=== PATIENT | female | born 1960 | race Caucasian/White ===

== ENCOUNTER 2020-07-19 08:16 | Outpatient (CLI) | payer BC, SELFPAY ==
--- NOTE | ~2020-07-19 | MM_ITS ---
EXAMINATION: MM screening [facility] BI w liv HISTORY: Screening mammogram TECHNIQUE: Craniocaudal and mediolateral oblique 3-D tomosynthesis images were obtained and synthetic 2-D images were generated. CAD analysis was submitted and interpreted. COMPARISON: 06/22/2019, 06/21/2018, 06/19/2017, 06/16/2016 bilateral digital screening mammogram examinat ions BREAST PARENCHYMAL COMPOSITION: The breasts are heterogeneously dense, which may obscure small masses . FINDINGS: There is no evidence of suspicious mass, calcification, or architectural distortion to sugg est malignancy in either breast. There has been no suspicious interval change. IMPRESSION: 1. No mammographic evidence of malignancy. 2. Recommend routine screening mammography in one year. BI-RADS Category 1: Negative Reviewed, dictated and finalized at location A.
== END 2020-07-19 08:17 | disposition home or self-care (01) ==
LOC: ANHIMG 08:21
PROVIDERS: PCP Family Medicine; Visit Provider Nurse Practitioner Obstetrics & Gynecology
DX: Z12.31 Encounter for screening mammogram for malignant neoplasm of breast (principal)
CPT/HCPCS: 77063; 77067

== ENCOUNTER 2021-09-12 16:20 | Outpatient (CLI) | payer BC, SELFPAY ==
--- NOTE | ~2021-09-12 | DEXA_ITS ---
Bone Density Report Name: MARIEL GELLER Age: 61 Sex: Female Ethnicity: White Date of : 1960 Indication: postmenopausal; height loss; Referring Provider: Phuong, Lorena Shoemaker Study: Bone densitometry was performed. Exam Date: September 12, 2021 Accession number: [id number] Bone Density: Region BMD T-score Z-score Classification AP Spine (L1-L4) 1.003 -0.4 1.2 Normal Femoral Neck (Left) 0.734 -1.0 0.4 Normal Total Hip (Left) 0.846 -0.8 0.3 Normal Total Hip Bilateral Avg 0.853 -0.8 0.4 Normal Femoral Neck (Right) 0.727 -1.1 0.3 Osteopenia Total Hip (Right) 0.859 -0.7 0.4 Normal World Health Organization criteria for BMD impression classify patients as: Normal (T-score at or above -1.0), Osteopenia (T-score between -1.0 and -2.5), or Osteoporosis (T-score at or below -2.5). 10-year Fracture Risk(1): Major Osteoporotic Fracture 7.0% Hip Fracture 0.5% Reported Risk Factors: [place] (), Neck BMD=0.727, BMI=20.6 (1) FRAX(R) Version 3.08. Fracture probability calculated for an untreated patient. Fracture probability may be lower if the patient has received treatment. Previous Exams: Region Exam Age BMD T-score BMD Change BMD Change Date g/cm2 vs Baseline vs Previous AP Spine(L1-L4) 09/12/2021 61 1.003 -0.4 -0.111(-9.9%)* 0.022(2.3%)# 06/21/2018 57 0.981 -0.6 -0.133(-12.0%) -0.133(-12.0%) 10/21/2011 51 1.114 0.6 Total Hip(Left) 09/12/2021 61 0.846 -0.8 -0.072(-7.8%)* 0.012(1.4%)# 06/21/2018 57 0.834 -0.9 -0.083(-9.1%)# -0.083(-9.1%)# 10/21/2011 51 0.917 -0.2 Total Hip(Right) 09/12/2021 61 0.859 -0.7 -0.084(-8.9%)* 0.039(4.7%)# 06/21/2018 57 0.820 -1.0 -0.123(-13.0%) -0.123(-13.0%) 10/21/2011 51 0.943 0.0 *Denotes significance at 95% confidence level, LSC for AP Spine = 0.022 g/cm2, LSC for Total Hip = 0.027 g/cm2 Clinical Information Provided by Patient: Has used the following medications: Vitamin D, Calcium Patient maximum height was 63 Drinks caffeinated beverages Onset of menses at age 10 Number of children 3 Impression: The patient has low bone mass, based on the Right Femoral Neck T-score. The patient has an estimated ten-year risk of hip fracture of 0.5% and an estimated ten-year risk of major fracture of 7%, based on the WHO FRAX algorithm. No significant bone loss was observed. Discussion: BONE DENSITY IS LOW AT ONE OR MORE SKELETAL SITES. This patient'
--- NOTE | ~2021-09-12 | MM_ITS ---
EXAMINATION: MM screening [facility]ce BI w liv HISTORY: Screening TECHNIQUE: Craniocaudal and mediolateral oblique 3-D tomosynthesis images were obtained and synthetic 2-D images were generated. CAD analysis was submitted and interpreted. COMPARISON: Comparison to multiple prior studies sequentially, with oldest reviewed study dated 06/07. BREAST PARENCHYMAL COMPOSITION: The breasts are heterogenously dense, which may obscure small masses. FINDINGS: There is no evidence of suspicious mass, calcification, or architectural distortion to sugg est malignancy in either breast. There has been no suspicious interval change. IMPRESSION: 1. No mammographic evidence of malignancy. 2. Recommend routine screening mammography in one year. BI-RADS Category 1: Negative Reviewed, dictated and finalized at location A. 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
== END 2021-09-12 16:21 | disposition home or self-care (01) ==
LOC: ANHIMG 16:22
PROVIDERS: PCP Family Medicine; Visit Provider Nurse Practitioner Obstetrics & Gynecology
DX: Z12.31 Encounter for screening mammogram for malignant neoplasm of breast (principal); Z78.0 Asymptomatic menopausal state; M85.851 Other specified disorders of bone density and structure, right thigh
CPT/HCPCS: 77063; 77067; 77080

== ENCOUNTER 2022-09-15 07:14 | Outpatient (CLI) | payer BC, SELFPAY ==
--- NOTE | ~2022-09-15 | MM_ITS ---
EXAMINATION: MM screening [facility] BI w liv HISTORY: Screening TECHNIQUE: Craniocaudal and mediolateral oblique 3-D tomosynthesis images were obtained and synthetic 2-D images were generated. CAD analysis was submitted and interpreted. COMPARISON: Comparison to multiple prior studies sequentially, with oldest reviewed study dated 06/16. BREAST PARENCHYMAL COMPOSITION: The breasts are heterogeneously dense, which may obscure small masses . FINDINGS: There are developing clustered calcifications in the upper outer quadrant of the left breas t. There are no suspicious calcifications, architectural distortion or discrete mass in the right jada ast. IMPRESSION: 1. Elevation cluster of indeterminate left breast calcifications, upper outer quadrant. 2. Magnification views are recommended. BI-RADS Category 0: Incomplete: Needs additional imaging evaluation. Reviewed, dictated and finalized at location A. 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 Elevation cluster of indeterminate left breast calcifications, upper outer q uadrant. 2. Magnification views are recommended. BI-RADS Category 0: Incomplete: Needs additional imaging evaluation.
== END 2022-09-15 07:15 | disposition home or self-care (01) ==
LOC: ANHIMG 07:15
PROVIDERS: PCP Family Medicine; Visit Provider Nurse Practitioner Obstetrics & Gynecology
DX: Z12.31 Encounter for screening mammogram for malignant neoplasm of breast (principal); R92.8 Other abnormal and inconclusive findings on diagnostic imaging of breast
CPT/HCPCS: 77063; 77067

== ENCOUNTER 2022-10-10 12:12 | Outpatient (CLI) | payer BC, SELFPAY ==
--- NOTE | ~2022-10-10 | MM_ITS ---
EXAMINATION: MM diagnostic mammo unilat LT HISTORY: Follow-up calcifications TECHNIQUE: Additional 3-D tomosynthesis images of the left breast were performed and synthetic 2-D im ages were generated. CAD analysis was submitted and interpreted. COMPARISON: Comparison to multiple prior studies sequentially, with oldest reviewed study dated 06/19. BREAST PARENCHYMAL COMPOSITION: The breasts are heterogeneously dense, which may obscure small masses FINDINGS: Left breast calcifications are most likely benign. No suspicious masses or architectural di stortion. IMPRESSION: 1. Probable benign left breast calcifications. 2. Recommend 6 month follow-up diagnostic left mammogram. BI-RADS category 3, probably benign findings. Reviewed, dictated and finalized at location A. 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
== END 2022-10-10 12:13 | disposition home or self-care (01) ==
LOC: ANHIMG 12:15
PROVIDERS: PCP Family Medicine; Visit Provider Nurse Practitioner Obstetrics & Gynecology
DX: R92.8 Other abnormal and inconclusive findings on diagnostic imaging of breast (principal)
CPT/HCPCS: 77065

== ENCOUNTER 2023-04-10 11:45 | Outpatient (CLI) | payer BC, SELFPAY ==
--- NOTE | ~2023-04-10 | MM_ITS ---
EXAMINATION: MM diagnostic joyce LT w liv HISTORY: Follow-up of microcalcifications TECHNIQUE: ML, MLO and CC 3-D tomosynthesis images of the left breast were performed and synthetic 2- D images were generated. Magnification views of the left breast in ML, MLO and CC projections. CAD an alysis was submitted and interpreted. COMPARISON: 10/10/2022 diagnostic mammogram BREAST PARENCHYMAL COMPOSITION: The breasts are heterogeneously dense, which may obscure small masses . FINDINGS: No suspicious mass or architectural distortion, malignant calcification, skin thickening or retraction or significant new or developing density is detected. Minimal diminished benign calcific ation in the anterior upper outer left breast compared to 10/10/2022. IMPRESSION: 1. Benign finding; no mammographic evidence of malignancy 2. Routine mammographic screening is recommended BI-RADS Category 2: Benign finding(s). Reviewed, dictated and finalized at location A.
== END 2023-04-10 11:46 | disposition home or self-care (01) ==
LOC: ANHIMG 11:47
PROVIDERS: PCP Family Medicine; Visit Provider Nurse Practitioner Obstetrics & Gynecology
DX: R92.8 Other abnormal and inconclusive findings on diagnostic imaging of breast (principal)
CPT/HCPCS: 77061; 77065; G0279

== ENCOUNTER 2024-02-13 07:22 | Outpatient (CLI) | payer MEDICARE, SELFPAY ==
--- NOTE | ~2024-02-13 | MM_ITS ---
EXAMINATION: MM screening joyce BI w liv HISTORY: Screening TECHNIQUE: Craniocaudal and mediolateral oblique 3-D tomosynthesis images were obtained and synthetic 2-D images were generated. CAD analysis was submitted and interpreted. COMPARISON: Comparison to multiple prior studies sequentially, with oldest reviewed study dated 06/22. BREAST PARENCHYMAL COMPOSITION: Dense: The breasts are heterogeneously dense, which may obscure small masses FINDINGS: There is no evidence of suspicious mass, calcification, or architectural distortion to sugg est malignancy in either breast. There has been no suspicious interval change. IMPRESSION: 1. No mammographic evidence of malignancy. 2. Recommend routine screening mammography in one year. BI-RADS Category 1: Negative Reviewed, dictated and finalized at location A.
--- NOTE | ~2024-02-13 | DEXA_ITS ---
Bone Density Report Name: MARIEL GELLER Age: 63 Sex: Female Ethnicity: White Date of : 1960 Indication: postmenopausal; screening for osteoporosis; cancer; Referring Provider: KATHERINE, WILBERTO Shoemaker Study: Bone densitometry was performed. Exam Date: February 13, 2024 Accession number: [id number] Bone Density: Region BMD T-score Z-score Classification AP Spine(L1-L4) 0.972 -0.7 1.1 Normal Femoral Neck (Left) 0.736 -1.0 0.5 Normal Total Hip (Left) 0.833 -0.9 0.4 Normal Femoral Neck (Right) 0.768 -0.7 0.8 Normal Total Hip (Right) 0.857 -0.7 0.5 Normal Total Hip Mean 0.845 -0.8 0.5 Normal World Health Organization criteria for BMD impression classify patients as: Normal (T-score at or above -1.0), Osteopenia (T-score between -1.0 and -2.5), or Osteoporosis (T-score at or below -2.5). 10-year Fracture Risk: FRAX not reported because: All T-scores for Spine Total, Hip Total, Femoral Neck at or above -1.0 Previous Exams: Region Exam Age BMD T-score BMD Change BMD Change Date g/cm2 vs Baseline vs Previous AP Spine (L1-L4) 02/13/2024 63 0.972 -0.7 -0.008 (-0.8%) -0.031 (-3.1%) 09/12/2021 61 1.003 -0.4 0.022 (2.3%)# 0.022 (2.3%)# 06/21/2018 57 0.981 -0.6 Total Hip(Left) 02/13/2024 63 0.833 -0.9 -0.001 (-0.1%) -0.012 (-1.5%) 09/12/2021 61 0.846 -0.8 0.012 (1.4%)# 0.012 (1.4%)# 06/21/2018 57 0.834 -0.9 Total Hip(Right) 02/13/2024 63 0.857 -0.7 0.037 (4.5%)* -0.002 (-0.3%) 09/12/2021 61 0.859 -0.7 0.039 (4.7%)# 0.039 (4.7%)# 06/21/2018 57 0.820 -1.0 *Denotes significance at 95% confidence level, LSC for AP Spine = 0.022 g/cm2, LSC for Total Hip = 0.027 g/cm2 # Denotes dissimilar scan types or analysis methods Clinical Information Provided by Patient: Has used the following medications: Vitamin D, Calcium Has the following medical conditions: Cancer Patient maximum height was 63 Drinks caffeinated beverages Onset of menses at age 11 Number of children 3 Impression: The patient has normal bone mass. No significant bone loss was observed. Discussion: BONE DENSITY IS ABOVE THE MINIMUM DESIRABLE LEVEL AT ALL SKELETAL SITES TESTED. This patient?s bone mineral density is above the minimum desirable level (T-score -1.0 or better) at all sites measured. The patient should follow a healthful lifestyle (good nutrition with adequate calcium and vitamin D, and appropriate weight-bearing exe
== END 2024-02-13 07:23 | disposition home or self-care (01) ==
PROVIDERS: PCP Family Medicine; Visit Provider Nurse Practitioner Obstetrics & Gynecology
DX: Z12.31 Encounter for screening mammogram for malignant neoplasm of breast (principal); Z78.0 Asymptomatic menopausal state; Z13.820 Encounter for screening for osteoporosis
CPT/HCPCS: 77063; 77067; 77080

== ENCOUNTER 2025-03-03 07:23 | Outpatient (CLI) | payer MEDICARE, SELFPAY ==
--- NOTE | ~2025-03-03 | MM_ITS ---
EXAMINATION: MM screening joyce BI w liv HISTORY: Screening TECHNIQUE: Craniocaudal and mediolateral oblique 3-D tomosynthesis images were obtained and synthetic 2-D images were generated. CAD analysis was submitted and interpreted. COMPARISON: Comparison to multiple prior studies sequentially, with oldest reviewed study dated 08/28. BREAST PARENCHYMAL COMPOSITION: Not dense: There are scattered areas of fibroglandular density. FINDINGS: There is focal asymmetry in the upper aspect of the left breast which is more prominent sada n on prior studies. This is not well recognized on the cc view. The right breast is stable without ev idence for malignancy. IMPRESSION: 1. Focal left breast asymmetry superiorly on MLO view, middle third. 2. Additional mammographic views and possible breast ultrasound are recommended. BI-RADS Category 0: Incomplete: Needs additional imaging evaluation. Reviewed, dictated and finalized at location A. IMPRESSION: 1. Focal left breast asymmetry superiorly on MLO view, middle third. 2. Additional mammographic views and possible breast ultrasound are recommended . BI-RADS Category 0: Incomplete: Needs additional imaging evaluation.
--- OUTSIDE RECORDS SUMMARY | 2025-03-03 07:26 | XMS_ITS | Clinical Summary ---
Author Organization [facility] Address [address] [place] [address] Phone Care Team Providers Care Product Manufacturing Professional Name Role Phone Ross Reyes MD Primary Care Provider [phone] Allergies Active Allergy Reactions Criticality Noted Date Comments Latex Other (See Comments) 09/13/2010 Medications CALCIUM ORALIndications: Lump or mass in breast Take by mouth. 1200mg Active CHOLECALCIFEROL, VITAMIN D3, (VITAMIN D-3 ORAL)Indications :Lump or mass in breast Take by mouth. 1000 iu's Active Active Problems Patient Care Coordination No te Formatting of this note migh t be different from the original. Primary Care: Ross Reyes MD Referring Provider: Valentina Orozco [address] [place] [address] [place] [address] Other: Pt denies any family hx of breast/ovarian ca Pt does state that her mother from adencarcinoma of an unknown origin. States that the doctor told the family that it could have been Pancreatic or ovarian. No autopsy was performed due to family wishes. 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 Gender Identity Not on file Sexual Orientation Not on file Occupation Industry Job Start Date Job End Date Not on file Not on file Not on file Not on file Last Filed Vital Signs Vital Sign Reading Time Taken Comments Blood Pressure 129/54 12/13/2010 1:29 PM CDT Pulse - - Temperature - - Respiratory Rate - - Oxygen Saturation - - Inhaled Oxygen Concentration - - Weight 70.8 kg (156 lb) 12/13/2010 1:29 PM CDT Height 165.1 cm (5' 5) 12/13/2010 1:29 PM CDT Body Mass Index 25.96 12/13/2010 1:29 PM CDT Plan of Treatment Health Maintenance Due Date Last Done Comments DTAP/TDAP/TD VACCINES (1 - Tdap) 1977 COLORECTAL SCREENING 2003 Colorectal Cancer Screening 2003 FIT-DNA Q 3 years 2003 FIT/FOBT Q 1 year 2003 Flex Sig/CT Colonography Q 5 years 2003 PNEUMOCOCCAL VACCINE 50+ YEA RS (1 of 1 - PCV) 2008 ZOSTER VACCINE (1 of 2) 2008 BREAST CANCER SCREENING 07/25/2011 07/25/20 10, 07/25/2010, 02/20/2009, Additional history exists OSTEOPOROSIS SCREENING 2023 INFLUENZA VACCINE (#1) 2024 RSV VACCINE (60+ or ) (1 - 1-dose 75+ series) 2033 Procedures Procedure Name Priority Date/Time Associated Diagnosis Comments MAMMO DIAGNOSTIC BILATERAL W OR WO CAD Routine 07/25/2010 from Last 3 Months or Most Recently Relevant to Health Maintenance Results * MAMMO DIGITAL DIAG BILAT (07/25/2010) Anatomical Region Laterality Modality Breast Bilateral Other us Valentina [place] MAMMO ORDERABLES Final Resul t from Last 3 Months or Most Recently Relevant to Health Maintenance Insurance [employer] OPEN ACCESS Care Teams Product Manufacturing Professional Relationship Specialty Start Date End Date Ross Reyes MD [address] [place] [phone] PCP - General Family Practice 09/13/10
--- OUTSIDE RECORDS SUMMARY | 2025-03-03 07:27 | XMS_ITS | Data Portability ---
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 Patient will come back in a year unless there are new symptoms. [email or web address] Not available 07/03/2020 10:48:12 07/09/2021 07/09/2021 Annual gynecological exam performed. Patient will come back in a year unless there are new symptoms. Not available 07/08/2021 16:51:05 09/04/2022 09/04/2022 Annual gynecological exam performed. Patient will come back in a year unless there are new symptoms. [email or web address] Not available 09/04/2022 09:17:51 09/08/2023 09/08/2023 Annual gynecological exam performed. Patient will come back in a year unless there are new symptoms. Not available 09/08/2023 09:31:00 Plan of Treatment Reminders Order Date Submit Date Provider Last Modified By Organization Details Last Modified Time Details Appointments WE[facility]OMAN-EST 2024 10:00A M NBA Barroso Not available Not available Not available Lab CMP, serum or plasma 2019 020 [facility] ([facility]), [address] , [address], [place], [address], 07/04/2020 12:23:03 CBC 2019 020 [facility] ([facility]), [address] , [address], [place], [address], 07/04/2020 12:23:02 lipid panel, serum 2019 [facility] ([facility]), [address], [place], [address], 07/04/2020 12:23:02 TSH, serum or plasma 2019 020 [facility] ([facility]), [address] , [address], [place], [address], 07/04/2020 12:23:04 vitamin D, 25-hydrox y, total, serum 2019 020 [facility]), [address] , [address], [place], [address], 07/04/2020 12:23:04 Referral None recorded. Procedures None recorded. Surgeries None recorded. Imaging MAMMO, screening , bilateral 2022 023 [facility], [address], [address], [place], [address], 09/22/2023 11:26:36 DEXA, axial skeleton + vertebral fracture assessmen t [address] [facility], [address], [place], [address], 02/12/2024 16:30:19 MAMMO, screening , bilateral 2021 022 [facility], [address], [place], [address], 09/15/2022 15:32:35 DEXA, axial skeleton + vertebral fracture assessmen t 2020 021 [facility], [address], [place], [address], 10/09/2021 15:17:10 Medication Orders None recorded. Patient TargetsNo targets recorded. Patient Instructions Encounter Date Encounter Id Patient Instructions Last Modified By Organization Details Last Modified Time 07/03/2020 [id number] [email or web address] Not available 12:34:03 Reason for Referral None Reported. Results Created Date Observation Date Name Description Value Unit Range Abnormal Flag Note LastModifiedBy Organization Detail LastModifiedTime 07/03/2007/04/2020 lipid panel , serum cholesterol 184 mg/dL <200 Not Available [facility] ([facility]) [address] [place] [address] Dr [address], [place], [address], 07/04/2020 12:23:02 07/03/2007/04/2020 lipid panel , serum triglyceride s 51 mg/dL <150 Not Available [facility] ([facility]) [address] [place] [address] Dr [address], [place], [address], 07/04/2020 12:23:02 07/03/2007/04/2020 lipid panel , serum HDL cholesterol 97 mg/dL >39 Not Available [facility] ([facility]) [address] [place] [address] Dr [address], [place], [address], 07/04/2020 12:23:02 07/03/2007/04/2020 lipid panel , serum cholesterol / HDL ratio 1.90 ratio 0.00-4 .44 Not Available [facility] ([facility]) [address] [place] [address] Dr [address], [place], [address], 07/04/2020 12:23:02 07/03/20 20 07/04/2020 lipid panel , serum non-HDL cholesterol 87 mg/dL <130 Not Available [facility] ([facility]) [address] [place] [address], [place], [address], 07/04/2020 12:23:02 07/03/2007/04/2020 lipid panel , serum LDL cholesterol (calculation ) 77 mg/dL <130 LDL Lynn stero l Level s Less than 100 mg/dL Optim al 100 to 129 mg/dL Near Optim al/ Above Optim al 130 to 159 mg/dL Borde rline High 160 to 189 mg/dL High 190 mg/dL and above Very High * Categ ories as recom olegario d by the 2003 ATPII I guide lines Not Available [facility]) [address] [facility] [address], [place], [address], 07/04/2020 12:23:02 07/03/2007/04/2020 lipid panel , serum LDL/HDL ratio 0.8 ratio <3.3 ___ LDL Lynn stero l Patie nt Histo ry ___ Test Date: 07/03 LDL Resul ts: 77 Units : mg/dL % Burgos e: - ___ Note: Ameri can Heart Assoc iatio n recom mends using total lynn stero l and HDL numbe rs rathe r than ratio s for patie nt class ifica tion. New guide lines from AHA/A CC recom mend again st using speci fic LDL targe ts for patie nt manag ement . Rathe r a perce ntage decre ase is the april ed patie nt manag ement algor ithm, betwe en 30% and 50% reduc tion. If you would like to have your patie nts Cardi ovasc ular Risk Asses sment class ifica tion (per 2013 AHA/A CC guide lines ) 10-ye ar ASCVD score , pleas e order the ASCVD Advan johnny Lipid i joel (LIPC VD). Not Available [facility] ([facility]) [address] [place] [address] Dr [address], [place], [address], 07/04/2020 12:23:02 07/03/20 20 07/04/2020 CBC WBC 4.2 K/uL 3.8-11 .5 Not Available [facility] ([facility]) [address] [place] [address] Dr [address], [place], [address], 07/04/2020 12:23:02 07/03/20 20 07/04/2020 CBC red blood cell count (RBC) 3.87 M/mm3 3.60-5 .30 Not Available [facility] ([facility]) [address] [place] [address] Dr [address], [place], [address], 07/04/2020 12:23:02 07/03/20 20 07/04/2020 CBC hemoglobin (HGB) 11.9 gm/dL 11.5-1 5.5 Not Available [facility] ([facility]) [address] [place] [address] Dr [address]z, [place], [address], 07/04/2020 12:23:02 07/03/20 20 07/04/2020 CBC hematocrit (HCT) 34.0 % 35.2-4 6.4 low Not Available [facility] ([facility]) [address] [place] [address] Dr [address], [place], [address], 07/04/2020 12:23:02 07/03/20 20 07/04/2020 CBC MCV 87.9 fL 79.0-9 9.0 Not Available [facility] ([facility]) [address] [place] [address] Dr [address], [place], [address], 07/04/2020 12:23:02 07/03/2007/04/2020 CBC MCH 30.7 pg 26.9-3 5.0 Not Available [facility] ([facility]) [address] [place] [address] Dr [address]ilez, [place], [address], 07/04/2020 12:23:02 07/03/2007/04/2020 CBC MCHC 35.0 g/dL 30.4-3 4.8 high Not Available [facility] ([facility]) [address] [place] [address] Dr [address], [place], [address], 07/04/2020 12:23:02 07/03/2007/04/2020 CBC RDW 40.1 fL 38.6-5 3.8 Not Available [facility] ([facility]) [address] [place] [address] Dr [address]z, [place], [address], 07/04/2020 12:23:02 07/03/2007/04/2020 CBC platelet count 209 K/cum m 137-39 7 Not Available [facility] ([facility]) [address] [place] [address] Dr [address]z, [place], [address], 07/04/2020 12:23:02 07/03/2007/04/2020 CMP, serum or plasm a sodium 138 mEq/L 135-14 5 Not Available [facility] ([facility]) [address] [place] [address] Dr [address]z, [place], [address], 07/04/2020 12:23:03 07/03/2007/04/2020 CMP, serum or plasm a potassium 4.1 mEq/L 3.5-5. 3 Not Available [facility] ([facility]) [address] [place] [address] Dr [address]z, [place], [address], 07/04/2020 12:23:03 07/03/20 20 07/04/2020 CMP, serum or plasm a chloride 99 mEq/L 97-108 Not Available [facility]) [address] [place] [address] Dr [address], [place], [address], 07/04/2020 12:23:03 07/03/2007/04/2020 CMP, serum or plasm a CO2 31 mEq/L 22-32 Not Available [facility] ([facility]) [address] [place] [address] Dr [address], [place], [address], 07/04/2020 12:23:03 07/03/20 20 07/04/2020 CMP, serum or plasm a glucose 88 mg/dL 65-99 Not Available [facility] ([facility]) [address] [place] [address] Dr [address], [place], [address], 07/04/2020 12:23:03 07/03/2007/04/2020 CMP, serum or plasm a BUN 11 mg/dL 8-23 Not Available [facility]) [address] [place] [address] Dr [address]z, [place], [address], 07/04/2020 12:23:03 07/03/20 20 07/04/2020 CMP, serum or plasm a creatinine 0.81 mg/dL 0.50-1 .00 Not Available [facility] ([facility]) [address] [place] [address] Dr [address]z, [place], [address], 07/04/2020 12:23:03 07/03/20 20 07/04/2020 CMP, serum or plasm a calcium 9.8 mg/dL 8.6-10 .4 Not Available [facility] ([facility]) [address] [place] [address] Dr [address]z, [place], [address], 07/04/2020 12:23:03 07/03/20 20 07/04/2020 CMP, serum or plasm a protein 6.6 g/dL 6.0-8. 3 Not Available [facility] ([facility]) [address] [place] [address] Dr Avilez, [place], [address], 07/04/2020 12:23:03 07/03/2007/04/2020 CMP, serum or plasm a albumin 4.5 g/dL 3.5-5. 3 Not Available [facility] ([facility]) [address] [place] [address] Dr Avilez, [place], [address], 07/04/2020 12:23:03 07/03/2007/04/2020 CMP, serum or plasm a alkaline phosphatase 85 IU/L 35-121 Not Available [facility] ([facility]) [address] [place] [address] Dr Avilez, [place], [address], 07/04/2020 12:23:03 07/03/20 20 07/04/2020 CMP, serum or plasm a ALT (SGPT) 24 IU/L <5-47 Not Available [facility] ([facility]) [address] [place] [address] Dr Avilez, [place], [address], 07/04/2020 12:23:03 07/03/2007/04/2020 CMP, serum or plasm a AST (SGOT) 26 IU/L <5-40 Not Available [facility] ([facility]) [address] [place] [address] Dr Avilez, [place], [address], 07/04/2020 12:23:03 07/03/20 20 07/04/2020 CMP, serum or plasm a bilirubin, total 0.3 mg/dL <0.2-1 .2 Not Available [facility] ([facility]) [facility] [address], [place], [address], 07/04/2020 12:23:03 07/03/2007/04/2020 CMP, serum or plasm a A/G ratio 2.1 mg/dL 1.1-2. 5 Not Available [facility]) [address] [place] [address] Dr Avilez, [place], [address], 07/04/2020 12:23:03 07/03/2007/04/2020 GFR, estim ated (eGFR ), serum estimated GFR (black) 90 mL/mi n/1.7 3m2 >59 Not Available [facility]) [facility] [address], [place], [address], 07/04/2020 12:23:03 07/03/2007/04/2020 GFR, estim ated (eGFR ), serum estimated GFR (other) 78 mL/mi n/1.7 3m2 >59 GFR Categ ories in Chron ic Kidne y Disea se (CKD) GFR Categ ory GFR (mL/m in/1. 73 sq. meter s) Inter preta tion G1 90 or great er Orly l or high* G2 60-89 Mild decre ase* G3a 45-59 Mild to moder ate decre ase G3b 30-44 Moder ate to sever e decre ase G4 15-29 Sever e decre ase G5 14 or less Kidne y failu re *In the absen ce of karthik beckwith e, neith er GFR categ ory G1 or G2 fulfi ll the crite kamryn for CKD (Antionette ey Int Suppl 2013; 3.1-1 50) The CKD-E PI calcu latio n is inten ded for use in patie nts 18 years of age and older . Decre ased calcu latio n accur acy may be seen in patie nts takin g medic ation s that affec t renal excre tion, or in those patie nts with extre mes in muscl e mass or diet. Not Available [facility] ([facility]) [address] [place] [address] Dr Avilez, [place], [address], 07/04/2020 12:23:03 07/03/20 20 07/04/2020 TSH, serum or plasm a TSH reflex to FT4 2.57 mU/L 0.27-4 .20 Not Available [facility] ([facility]) [address] [place] [address] Dr [address]z, [place], [address], 07/04/2020 12:23:04 07/03/20 20 07/04/2020 vitam in D, 25-hy droxy , total , serum vitamin D 25-hydroxy 42.1 NG/mL 30.0-1 00.0 Inter preta tion of Vitam in D 25 OH: < 20 ng/mL - Defic iency 20 - 29 ng/mL - Insuf ficie ncy 30 - 100 ng/mL - Suffi cienc y > 100 ng/mL - Super -ther apeut ic- toxic ity may occur above this level . Clini shannon corre latio n requi red. Not Available [facility] ([facility]) [address] [place] [address] Dr [address]z, [place], [address], 07/04/2020 12:23:04 10/16/19 22 10/16/2021 CBC W/DIF F WBC 4.7 10'3/ uL 3.6-10 .2 Not Available [facility] (Lab) [address], [place], [address], 10/17/2021 02:25:49 10/16/19 22 10/16/2021 CBC W/DIF F RBC 4.60 10'6/ uL (based on docume nted legal sex) 4.10-5 .30 Not Available [facility] (Lab) [address], [place], [address], 10/17/2021 02:25:49 10/16/19 22 10/16/2021 CBC W/DIF F HGB 13.3 g/dL (based on docume nted legal sex) 11.9-1 5.8 Not Available [facility] (Lab) [address], [place], [address], 10/17/2021 02:25:49 10/16/19 22 10/16/2021 CBC W/DIF F HCT 41.6 % (based on docume nted legal sex) 37.4-4 8.3 Not Available [facility] (Lab) [address], [place], [address], 10/17/2021 02:25:49 10/16/19 22 10/16/2021 CBC W/DIF F MCV 91.0 fL 82.0-9 9.0 Not Available [facility] (Lab) [address], [place], [address], 10/17/2021 02:25:49 10/16/19 22 10/16/2021 CBC W/DIF F MCH 29.0 pg 27.0-3 3.0 Not Available [facility] (Lab) [address], [place], [address], 10/17/2021 02:25:49 10/16/19 22 10/16/2021 CBC W/DIF F MCHC 32.0 g/dL 32.0-3 6.0 Not Available [facility] (Lab) [address] [place], [address], 10/17/2021 02:25:49 10/16/19 22 10/16/2021 CBC W/DIF F RDW 13.0 % 11.0-1 5.0 Not Available [facility] (Lab) [address], [place], [address], 10/17/2021 02:25:49 10/16/19 22 10/16/2021 CBC W/DIF F plt 191 10'3/ uL 150-45 0 Not Available [facility] (Lab) [address], [place], [address], 10/17/2021 02:25:49 10/16/19 22 10/16/2021 CBC W/DIF F MPV 10.1 fL 9.8-12 .7 Not Available [facility] (Lab) [address], [place], [address], 10/17/2021 02:25:49 10/16/19 22 10/16/2021 CBC W/DIF F NRBC's 0.00 % 0 Not Available [facility] (Lab) [address], [place], [address], 10/17/2021 02:25:49 10/16/19 22 10/16/2021 CBC W/DIF F absolute NRBCs 0.0 10'3/ uL 0 Not Available [facility] (Lab) [address], [place], [address], 10/17/2021 02:25:49 10/16/19 22 10/16/2021 CBC W/DIF F neutrophils 58.0 % 37.0-7 2.0 Not Available [facility] (Lab) [address], [place], [address], 10/17/2021 02:25:49 10/16/19 22 10/16/2021 CBC W/DIF F lymphocytes 30.0 % 16.0-4 8.0 Not Available [facility] (Lab) [address], [place], [address], 10/17/2021 02:25:49 10/16/19 22 10/16/2021 CBC W/DIF F monocytes 6.0 % 4.0-14 .0 Not Available [facility] (Lab) [address], [place], [address], 10/17/2021 02:25:49 10/16/19 22 10/16/2021 CBC W/DIF F eosinophils 5.0 % 0.0-9. 0 Not Available [facility] (Lab) [address] [facility], [place], [address], 10/17/2021 02:25:49 10/16/19 22 10/16/2021 CBC W/DIF F basophils 1.0 % 0.0-2. 0 Not Available [facility] (Lab) [address] [facility], [place], [address], 10/17/2021 02:25:49 10/16/19 22 10/16/2021 CBC W/DIF F immature granulocytes 0.0 % no define d refere nce range Not Available [facility] (Lab) [address] [facility], [place], [address], 10/17/2021 02:25:49 10/16/19 22 10/16/2021 CBC W/DIF F absolute neutrophils 2.7 10'3/ uL 1.1-6. 0 Not Available [facility] (Lab) [address] [facility], [place], [address], 10/17/2021 02:25:49 10/16/19 22 10/16/2021 CBC W/DIF F absolute lymphocytes 1.4 10'3/ uL 0.7-3. 4 Not Available [facility] (Lab) [address] [facility], [place], [address], 10/17/2021 02:25:49 10/16/19 22 10/16/2021 CBC W/DIF F absolute monocytes 0.3 10'3/ uL 0.3-1. 0 Not Available [facility] (Lab) [address] [place], [address], 10/17/2021 02:25:49 10/16/19 22 10/16/2021 CBC W/DIF F absolute eosinophils 0.2 10'3/ uL 0.0-0. 6 Not Available [facility] (Lab) [address] [facility], [place], [address], 10/17/2021 02:25:49 10/16/19 22 10/16/2021 CBC W/DIF F absolute basophils 0.1 10'3/ uL 0.0-0. 1 Not Available [facility] (Lab) [address] [facility], [place], [address], 10/17/2021 02:25:49 10/16/19 22 10/16/2021 CBC W/DIF F absolute immature granulocytes 0.00 10'3/ uL 0.00-0 .10 2021 12:36 AM: P indic ates parti al resul ts on a panel have been relea sed. Addit ional resul ts will follo w. 2021 12:36 AM: This resul t has been final verif ied. No addit ional or burgos ed resul ts are expec ashley. Not Available [facility] (Lab) [address] [facility], [place], [address], 10/17/2021 02:25:49 10/16/19 22 10/16/2021 PHOSP HORUS phosphorus 3.4 mg/dL 2.5-5. 0 Not Available [facility] (Lab) [address] [facility], [place], [address], 10/17/2021 02:25:50 10/16/19 22 10/16/2021 CMP(C OMPRE HENSI VE METAB OLIC PANEL ) sodium 141 mmol/ L 133-14 6 Not Available [facility] (Lab) [address] [place], [address], 10/17/2021 02:25:50 10/16/19 22 10/16/2021 CMP(C OMPRE HENSI VE METAB OLIC PANEL ) potassium 4.2 mmol/ L 3.5-5. 1 Not Available [facility] (Lab) [address] [place], [address], 10/17/2021 02:25:50 10/16/19 22 10/16/2021 CMP(C OMPRE HENSI VE METAB OLIC PANEL ) chloride 106 mmol/ L 98-107 Not Available [facility] (Lab) [address] [place], [address], 10/17/2021 02:25:50 10/16/19 22 10/16/2021 CMP(C OMPRE HENSI VE METAB OLIC PANEL ) carbon dioxide 27 mmol/ L 21-31 Not Available [facility] (Lab) [address] [facility], [place], [address], 10/17/2021 02:25:50 10/16/19 22 10/16/2021 CMP(C OMPRE HENSI VE METAB OLIC PANEL ) anion gap 8 mmol/ L 4-13 Not Available [facility] (Lab) [address], [place], [address], 10/17/2021 02:25:50 10/16/19 22 10/16/2021 CMP(C OMPRE HENSI VE METAB OLIC PANEL ) blood urea nitrogen 16 mg/dL 7-25 Not Available [facility] (Lab) [address] [facility], [place], [address], 10/17/2021 02:25:50 10/16/19 22 10/16/2021 CMP(C OMPRE HENSI VE METAB OLIC PANEL ) creatinine 0.86 mg/dL 0.60-1 .30 Not Available [facility] (Lab) [address] [facility], [place], [address], 10/17/2021 02:25:50 10/16/19 22 10/16/2021 CMP(C OMPRE HENSI VE METAB OLIC PANEL ) egfrcr (CKD-epi 2020) 76 mL/mi n/1.7 3_m2 >=60 Not Available [facility] (Lab) [address] [facility], [place], [address], 10/17/2021 02:25:50 10/16/19 22 10/16/2021 CMP(C OMPRE HENSI VE METAB OLIC PANEL ) calcium 9.4 mg/dL 8.3-10 .5 Not Available [facility] (Lab) [address] [facility], [place], [address], 10/17/2021 02:25:50 10/16/19 22 10/16/2021 CMP(C OMPRE HENSI VE METAB OLIC PANEL ) glucose 83 mg/dL 70-100 Not Available [facility] (Lab) [address] [facility], [place], [address], 10/17/2021 02:25:50 10/16/19 22 10/16/2021 CMP(C OMPRE HENSI VE METAB OLIC PANEL ) protein, total 6.5 g/dL 6.4-8. 3 Not Available [facility] (Lab) [address] [facility], [place], [address], 10/17/2021 02:25:50 10/16/19 22 10/16/2021 CMP(C OMPRE HENSI VE METAB OLIC PANEL ) albumin 4.4 g/dL 3.5-5. 0 Not Available [facility] (Lab) [address] [facility], [place], [address], 10/17/2021 02:25:50 10/16/19 22 10/16/2021 CMP(C OMPRE HENSI VE METAB OLIC PANEL ) ALT 22 units /L 9-43 Not Available [facility] (Lab) [address] [facility], [place], [address], 10/17/2021 02:25:50 10/16/19 22 10/16/2021 CMP(C OMPRE HENSI VE METAB OLIC PANEL ) alkaline phosphatase 70 units /L 34-104 Not Available [facility] (Lab) [address] [place], [address], 10/17/2021 02:25:50 10/16/19 22 10/16/2021 CMP(C OMPRE HENSI VE METAB OLIC PANEL ) AST 22 units /L 13-39 Not Available [facility] (Lab) [address] [place], [address], 10/17/2021 02:25:50 10/16/19 22 10/16/2021 CMP(C OMPRE HENSI VE METAB OLIC PANEL ) bilirubin, total 0.5 mg/dL 0.2-1. 2 Not Available [facility] (Lab) [address] [facility], [place], [address], 10/17/2021 02:25:50 10/16/19 22 10/16/2021 TSH, REFLE X FREE T4 TSH 3.48 uIU/m L 0.30-5 .33 Not Available [facility] (Lab) [address] [place], [address], 10/17/2021 02:25:50 10/16/19 22 10/16/2021 VITAM IN D, 25-OH (TOTA L D2/D3 ) vitamin D, 25-hydroxy, total 44.1 NG/mL 30-80 NOTE: Defic iency : <20 ng/mL Insuf ficie ncy: 20-29 ng/mL Optim um Level : 30-80 ng/mL Possi ble Toxic ity: >80 ng/mL Most patie nts with toxic ity have level s >150 ng/mL . 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 Atrop hy prese nt. Elect ronic ally jaguar d by Richard mar, Patience ay, CT on 2021 at 2:13 PM ----- ----- ----- ----- ----- ----- ----- ----- ----- ----- ----- ----- ----- ----- ----- ----- ----- ---- HPV RESUL TS: HPV mRNA E6/E7 : No HPV mRNA Detec ashley NOTE: This high risk HPV mRNA assay detec ts fourt een high- risk HPV types (16, 18, 31, 33, 35, 39, 45, 51, 52, 56, 58, 59, 66, 68) witho ut diffe renti ation . COMME NT: Note: This speci men was revie wed by a Cytot echno logis t and/o r Patho logis t (as indic ated in this repor t) after evalu ation using the Thinp rep Imagi ng Syste m. CLINI [facility]ON INFOR MATIO N: Menst rual Statu s: LMP (if appli cable ): Clini shannon Histo ry/Pr eviou s Pap: Type of Neopl cesar (if appli cable ): Signi fican t Clini shannon Findi ngs: Other Histo ry: Hormo norman (if appli cable ): PAP EDUCA TERRI L NOTE: The Pap Test is a scree jodi test with an inher ent false negat clay rate. Liqui d-bas ed sampl ing may decre ase, but will not elimi mel, false negat clay resul ts. A negat clay resul t does not precl ude the prese nce and/o r devel opmen t of disea se, since the prese nce of abnor mal cells in the sampl e depen ds on the locat ion of the lesio n and sampl ing techn ique. Enrique nued regul ar scree jodi is the best metho d of cance r preve ntion . If repor ashley cytol ogic findi ng do not corre late with physi shannon and/o r histo rical findi ngs, furth er inves tigat ion is recom olegario d, as clini linh helms nted. 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 Atrop hy prese nt. Elect mayur silva jaguar d by Becky Saha , CT on 09/11 at 9:26 AM ----- ----- ----- ----- ----- ----- ----- ----- ----- ----- ----- ----- ----- ----- ----- ----- ----- ---- HPV RESUL TS: HPV mRNA E6/E7 : No HPV mRNA Detec ashley NOTE: This high risk HPV mRNA assay detec ts fourt een high- risk HPV types (16, 18, 31, 33, 35, 39, 45, 51, 52, 56, 58, 59, 66, 68) witho ut diffe renti ation . COMME NT: This speci men was revie wed by a Cytot echno logis t and/o r Patho logis t (as indic ated in this repor t) after evalu ation using the Thinp rep Imagi ng Syste m. CLINI SHANNON INFOR MATIO N: Menst rual Statu s: LMP (if appli cable ): Clini shannon Histo ry/Pr eviou s Pap: Type of Neopl cesar (if appli cable ): Signi fican t Clini shannon Findi ngs: Other Histo ry: Hormo norman (if appli cable ): PAP EDUCA TERRI L NOTE: The Pap Test is a scree jodi test with an inher ent false negat clay rate. Liqui d-bas ed sampl ing may decre ase, but will not elimi mel, false negat clay resul ts. A negat clay resul t does not precl ude the prese nce and/o r devel opmen t of disea se, since the prese nce of abnor mal cells in the sampl e depen ds on the locat ion of the lesio n and sampl ing techn ique. Enrique nued regul ar scree jodi is the best metho d of cance r preve ntion . If repor ashley cytol ogic findi ng do not corre late with physi shannon and/o r histo rical findi ngs, furth er inves tigat ion is recom olegario d, as clini linh helms nted. Not Available [facility] (Lab) [address], [place], [address], 09/11/2023 10:30:41 07/19/20 20 07/19/2020 MAMMO , scree jodi, bilat eral No observ ation record ed. [facility] [address], [place], [address], 07/23/2020 19:42:59 10/01/19 MAMMO , scree jodi, bilat eral No observ ation record ed. [facility] Not Available 2021 10:11:14 10/09/19 22 09/12/2021 DEXA, axial skele ton + verte bral fract ure asses sment No observ ation record ed. [facility] [address], [place], [address], 10/11/2021 19:45:54 09/15/20 22 09/15/2022 MAMMO , scree jodi, bilat eral No observ ation record ed. [address], [place], [address], 09/17/2022 09:19:59 10/10/19 23 10/10/2022 MAMMO , diagn ostic , digit al, unila teral No observ ation record ed. [address] [facility] [address], [place], [address], 10/13/2022 10:52:28 Result Notes None recorded. Problems Name Problem SNOMED Code Status Onset Date Resolution Date Notes Provider Name and Address Organization Details Recorded Time Speciali zed medical examinat ion Completed 201007/08/2021 Gynecolog ical Examinati on;Record ed Elsewhere : No Locati on: [facility] So urce: EHR Chron ic: N Practic e ID: 0001 Bill able Time: 08:45:00 AM Amara [facility] 16:06:[address] Concept Completed 201807/08/2021 Encntr for bung sewer exam (general) (routine) w/o abn findings; Recorded Elsewhere : No Locati on: [facility] So urce: EHR Chron ic: N Practic e ID: 0001 Bill able Time: 09:30:00 AM Amara Nolasco [facility] 16:06:19 Adult health examinat ion Completed 201007/08/2021 Routine Medical Exam;Tico rded Elsewhere : No Locati on: [facility] So urce: EHR Chron ic: N Practic e ID: 0001 Bill able Time: 08:45:00 AM Amara Nolasco [facility] 16:06:05 Finding of abdomen [id number] Completed 201607/08/2021 Left lower quadrant abdominal swelling, mass and lump;Tico rded Elsewhere : No Locati on: [facility] So urce: EHR Chron ic: N Practic e ID: 0001 Bill able Time: 09:30:00 AM Amara [facility] 16:06:[address] Concept Completed 201607/08/2021 Encntr for general adult medical exam w/o abnormal findings; Recorded Elsewhere : No Locati on: [facility] So urce: EHR Chron ic: N Practic e ID: 0001 Bill able Time: 09:30:00 AM Amara [facility] 16:06:17 Microsco pic hematuri a [id number] Completed 201207/08/2021 MICROSCOP IC HEMATURIA ;Recorded Elsewhere : No Locati on: [facility] So urce: EHR Chron ic: N Practic e ID: 0001 Bill able Time: 10:00:00 AM [facility] 16:06:13 Screenin g for malignan t neoplasm of cervix Completed 201207/08/2021 Screening for malignant neoplasms of the cervix;Re corded Elsewhere : No Locati on: [facility] So urce: EHR Chron ic: N Practic e ID: 0001 Bill able Time: 10:00:00 AM Amara [facility] 1 16:06:14 Screenin g for malignan t neoplasm of rectum Completed 201507/08/2021 Encounter for screening for malignant neoplasm of rectum;Re corded Elsewhere : No Locati on: [facility] So urce: EHR Chron ic: N Practic e ID: 0001 Bill able Time: 10:00:00 AM Amara [facility] 1 16:06:16 Carbuncl e of skin and/or subcutan eous tissue [id number] Completed 201407/08/2021 Carbuncle ;Recorded Elsewhere : No Locati on: [facility] So urce: EHR Chron ic: N Practic e ID: 0001 Bill able Time: 08:00:00 AM Amara Nolasco [facility] 16:06:07 Carbuncl e of trunk [id number] Completed 201407/08/2021 BOIL BACK BREAST CHEST FLANK GROIN;Pra ctice ID: 0001 Amara Nolasco [facility] 16:06:08 Problem Notes None recorded. Procedures Surgical History Date Name Laterality Status Provider Name and Address Organization Details Recorded Time 023 Date of Last Mammogram completed [facility] 09/08/2023 09:34:03 022 Date of Last Pap Smear completed [facility] 09/08/2023 09:28:22 021 Most Recent Bone Density completed Janeth Combs [facility] 2022 15:32:44 018 completed [facility] 07/08/2021 16:48:50 013 completed [facility] 07/09/2021 10:51:32 013 Date of Last Colonoscopy completed [facility] 07/09/2021 10:51:32 Other completed [facility] 07/09/2021 10:51:42 Colonoscopy completed Lorena Baca [facility]- [address], [place], [address], [facility] 09/04/2022 09:31:53 Hernia repair w/mesh completed Frieda [facility] 07/02/2020 17:22:43 Cholecystectomy completed [facility] 07/02/2020 17:22:49 excision of basal cell carcinoma completed [facility] 07/02/2020 17:22:57 Imaging Results None recorded. Procedure Notes None recorded. Medical Equipment None Reported. Allergies Allergen ID Allergen Name Allergen Category Reaction Reaction Severity Criticality Documentation Date Start Date Code Code System Note Provider Name and Address Organization Details Recorded Time 85550 Penicilli n Not available itching moderate Not available 07/09/2021 28405 RxNorm [facility] 10:51:15 2264 Product containin g penicilli n (product) medicatio n Not available Not available Not available 07/02/2020 02764 8001 SNOMED [facility] 10:51:53 Medications Name Sig Start Date Stop Date Status Note LastModified by Organization Details LastModified Time Bactroban 2 % topical cream apply by topical route 3 times every day for 10 days a small amount to the affected area 04/14 completed Prescrib ed Elsewher e: No Locat ion: [facility] odify By: barber Phillipsou nter DateTime : 04/05/20 15 08:00:00 AM Not Available Not Available Not Available FiberCon 625 mg tablet active Prescrib ed Elsewher e: Yes Loca tion: [facility] odify By: cmedical Encount er DateTime : 03/27/20 15 08:45:00 AM Not Available Not Available Not Available Cipro 500 mg tablet take 1 tablet (500MG) by oral route every 12 hours 04/17 completed Prescrib ed Elsewher e: No Locat ion: [facility] odify By: barber Phillipsou nter DateTime : 04/05/20 15 08:00:00 AM Not Available Not Available Not Available Vitamins and Minerals tablet active Prescrib ed Elsewher e: Yes Loca tion: [facility] M odify By: addi locke DateTime : 09/09/20 11 08:45:00 AM Not Available Not Available Not Available iron ER 325 mg (65 mg iron) capsule,e xtended release 07/09 completed Prescrib ed Elsewher e: Yes Loca tion: Jaison knox [facility] odify By: addi ruizer DateTime : 09/09/20 11 08:45:00 AM Not Available Not Available Not Available Calcio Deanne 500 mg tablet 07/09 completed Prescrib ed Elsewher e: Yes Loca tion: [facility] odify By: addi locke DateTime : 09/09/20 11 08:45:00 AM Not Available Not Available Not Available calcium active Not Available Not Avail able Not Available iron 07/03 completed Not Available Not Available Not Available FiberCon 07/09 completed Not Available Not Available Not Available Vitamin And Mineral 07/09 completed Not Available Not Available Not Available Shingrix (PF) 50 mcg/0.5 mL intramusc ular suspensio n, kit 07/03 completed Not Available Not Available Not Available Vitals Date Recorded Body height Body mass index (BMI) Body weight Systolic blood pressure Diastolic blood pressure Provider Name and Address Organization Details Last Updated DateTime 07/03/2020 162.56 cm 21.1 kg/m2 29967.86 g 138 mm[Hg] 70 mm[Hg] Frieda Banks [facility] 0 10:54:36 Date Recorded Systolic blood pressure Diastolic blood pressure Provider Name and Address Organization Details Last Updated DateTime 07/09/2021 136 mm[Hg] 80 mm[Hg] Lorena Baca, [facility]- [address], [place], [address], [facility] 07/09/2021 10:53:43 Date Recorded Body height Body mass index (BMI) Body weight Body weight Provider Name and Address Organization Details Last Updated DateTime 07/09/2021 161.29 cm 24.9 kg/m2 49928.71 g 57129.86 g Amara Nolasco [facility] 07/12/2021 16:40:39 Date Recorded Body height Body mass index (BMI) Body weight Systolic blood pressure Diastolic blood pressure Provider Name and Address Organization Details Last Updated DateTime 09/04/2022 161.29 cm 21.6 kg/m2 70839.45 g 130 mm[Hg] 80 mm[Hg] Janeth Combs [facility] 2 09:25:24 Date Recorded Body height Body mass index (BMI) Body weight Systolic blood pressure Diastolic blood pressure Provider Name and Address Organization Details Last Updated DateTime 09/08/2023 161.29 cm 22.1 kg/m2 88899.23 g 130 mm[Hg] 77 mm[Hg] Kaylah Lawrence [facility] 3 09:33:19 Social History Question Answer Notes LastModified by Organizat ion Details LastModified Time Tobacco Smoking Status Never Smoker [facility] 07/09/2021 10:51:39 Do You Have An Advance Directive? Yes Information n ot available 07/09/2021 Are You Blind Or Do You Have Difficulty Seeing? No Information n ot available 07/08/2021 What Is Your Level Of Caffeine Consumption? Moderate Information not available 07/09/2021 How Much Tobacco Do You Chew? None Information not available 07/09/2021 In The 14 Days Before Symptom Onset, Have You Had Close Contact With A Laboratory-confirm ed COVID-19 While That Case Was Ill? No Information n ot available 09/08/2023 In The 14 Days Before Symptom Onset, Have You Had Close Contact With A Person Who Is Under Investigation For COVID-19 While That Person Was Ill? No Information not available 09/08/2023 Have You Been To An Area Known To Be High Risk For COVID-19? No Information not available 07/09/2021 Are You Deaf Or Do You Have Serious Difficulty Hearing? No Information not available 07/08/2021 What Type Of Diet Are You Following? REGULAR Information n ot available 07/09/2021 What Is The Highest Grade Or Level Of School You Have Completed Or The Highest Degree You Have Received? [id number] Information not available 07/09/2021 Are There Any Guns Present In Your Home? Yes Information not available 07/09/2021 Do You Use Protection During Sex? Usually Information not available 07/09/2021 Do You Use Your Seat Belt Or Car Seat Routinely? Yes Information not available 07/08/2021 Do You Have Smoke And Carbon Monoxide Detectors In Your Home? Yes Information not available 07/08/2021 How Much Tobacco Do You Smoke? No Information not available 07/09/2021 Do You Use Sunscreen Routinely? No Information not available 07/09/2021 Have You Used IV Drugs? No Information not available 07/09/2021 Sex: Unknown Functional Status Question Answer Note LastModified by The 5th Quarter ion Details LastModified Time Do you use any illicit or recreational drugs? No Information not available 07/08/2021 What is your level of alcohol consumption? None Information not available 07/08/2021 Are you able to walk? 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 Moderate Information not available 07/08/2021 Mental Status Question Answer Note LastModified by Organization D etails LastModified Time Do you feel stressed (tense, restless, nervous, or anxious, or unable to sleep at night)? [id number] Information not available 07/09/2021 Family History Relationship Description Onset Age of this Age Resolved Age Notes LastModified by Organization Details LastModified Time Mother Suspected ovarian cancer [id number] Not available 09/08 09:26:41 Brother Acute stroke [id number] Not av ailable 09/08/2023 09:26:41 Brother Asthma [email or web address] Not available 1 17:21:52 Father Asthma [email or web address] Not available 17:21:52 Medical History No medical history recorded. Gynecological History Statement/Question Response Abnormal Pap N Date of Last Mammogram 04/09/2023 Date of LMP 11/26/2012 N On BCP's at Conception? N STIs/STDs N HPV Vaccine N Current Control Method Menopause 06/25/2018 10 Age at First Child 22 If Post Menopausal, Age at Menopause 53 Date of Last Colonoscopy 06/02/2013 Most Recent Bone Density 09/12/2021 Sexually Active? N Menses Monthly N Date of Last Pap Smear 09/04/2022 Sexual Problems? N LMP Approximate 06/02/2013 N Obstetrics History GPAL:G 3 P 3 0 0 3 Type Value Full Term 3 Living 3 Total 3 Past Encounters Encounter ID Performer Location Encounter Start Date Encounter Closed Date Diagnosis/Indication Diagnosis SNOMED-CT Code Diagnosis ICD10 Code Diagnosis Note [id number] Lorena Baca [facility] [address],[facility] [place] [address] 07/03/2020 10:38:09 07/03/2020 12:41:39 Gynecologic examination 66470473 Z01.419 Take Calcium with Vitamin D 12-1500mg daily. Do monthly self breast exams. It is advised to get annual flu shot in the fall and she could obtain at [facility] or [facility]. If you haven't received the Tdap vaccine in the last 10 years you should obtain one as well. Have mammogram yearly, bone density every 2-3 years and colonoscop y every 5-10 years depending on findings and history. Engage in daily exercise of low impact aerobic exercise 45-60 minutes 4-5 times weekly. Avoid tobacco and illicit drugs as well as using moderation with alcohol intake less than 1-2 8 oz beverages daily. This lifestyle behavior pattern will lead to less health conditions and longer life span. If BMI greater than 25 weight watchers or dietary consult advised. Questions have been answered. Patient appears to understand instructio ns, but if you have any further questions call or respond to this email Normal pap/hpv hx monogamous relationsh ip x 39yrs Pap/hpv done this year. Discussed next pap at 62yo unless otherwise indicated per asccp. UTD Colonoscop y Mammo ordered No issues or concerns this year. Adult heal th examination [id number] Z00.00 [id number] [facility] [address] [address] 07/09/2021 09:58:17 07/09/2021 11:19:32 Gynecologic examination 03966011 Z01.419 Take Calcium with Vitamin D 12-1500mg daily. Do monthly self breast exams. It is advised to get annual flu shot in the fall and she could obtain at [facility] or [facility]. If you haven't received the Tdap vaccine in the last 10 years you should obtain one as well. Have mammogram yearly, bone density every 2-3 years and colonoscop y every 5-10 years depending on findings and history. Engage in daily exercise of low impact aerobic exercise 45-60 minutes 4-5 times weekly. Avoid tobacco and illicit drugs as well as using moderation with alcohol intake less than 1-2 8 oz beverages daily. This lifestyle behavior pattern will lead to less health conditions and longer life span. If BMI greater than 25 weight watchers or dietary consult advised. Questions have been answered. Patient appears to understand instructio ns, but if you have any further questions call or respond to this email Normal pap/hpv hx monogamous relationsh ip x 39yrs Pap/hpv done this year. Discussed next pap at 62yo unless otherwise indicated per asccp. UTD Colonoscop y Mammo ordered No issues or concerns this year. Postmenopa usal osteopenia [id number] M85.80 [id number] Lorean Baca , [facility] [address] [address] 09/04/2022 09:07:57 09/04/2022 10:35:24 Gynecologic examination [id number] Z01.419 Take Calcium with Vitamin D 12-1500mg daily. Do monthly self breast exams. It is advised to get annual flu shot in the fall and she could obtain at [facility] or [facility]. If you haven't received the Tdap vaccine in the last 10 years you should obtain one as well. Have mammogram yearly, bone density every 2-3 years and colonoscop y every 5-10 years depending on findings and history. Engage in daily exercise of low impact aerobic exercise 45-60 minutes 4-5 times weekly. Avoid tobacco and illicit drugs as well as using moderation with alcohol intake less than 1-2 8 oz beverages daily. This lifestyle behavior pattern will lead to less health conditions and longer life span. If BMI greater than 25 weight watchers or dietary consult advised. Questions have been answered. Patient appears to understand instructio ns, but if you have any further questions call or respond to this email Pap/hpv sent USPSTF recommends against screening for cervical cancer in women older than 65yo, those who've had a hysterecto my for non-cancer indication s, & who have had adequate prior screening & are not otherwise at high risk for cervical cancer. STD ScreenGene tic Screen discussedC olon Screen UTD PCP due 3Dexa Screen due 2022 can be done by [facility] PCPMammo orderedWWE q2yrs unless issues-pel katherine check Screening mammography 24 046457 Z12.31 [id number] Lorena Baca , [facility] [address] [address] 09/08/2023 09:25:11 09/08/2023 09:54:09 Gynecologic examination 13579262 Z01.419 Z11.51 Take Calcium with Vitamin D 12-1500mg daily. Do monthly self breast exams. It is advised to get annual flu shot in the fall and she could obtain at [facility] or [facility]. If you haven't received the Tdap vaccine in the last 10 years you should obtain one as well. Have mammogram yearly, bone density every 2-3 years and colonoscop y every 5-10 years depending on findings and history. Engage in daily exercise of low impact aerobic exercise 45-60 minutes 4-5 times weekly. Avoid tobacco and illicit drugs as well as using moderation with alcohol intake less than 1-2 8 oz beverages daily. This lifestyle behavior pattern will lead to less health conditions and longer life span. If BMI greater than 25 weight watchers or dietary consult advised. Questions have been answered. Patient appears to understand instructio ns, but if you have any further questions call or respond to this email Pap/hpv sent USPSTF recommends against screening for cervical cancer in women older than 65yo, those who've had a hysterecto my for non-cancer indication s, & who have had adequate prior screening & are not otherwise at high risk for cervical cancer. STD ScreenGene tic Screen discussedC olon Screen UTD PCP due 3Dexa Screen orderedRou [facility] Labs PCPMammo orderedWWE q2yrs unless issues-pel katherine check Screening mammography 24 565438 Z12.31 Screening for osteoporosis 158771179 Z13.820 Health Concerns Section Related Observation LastModified by Organization Detai ls LastModified Time None Recorded Concern Status LastModified by Organization Details LastModified Time None Recorded Advance Directives Directive Y: Payers Encounter Date Sequence Insurance Name Policy Number Policy Huertas Covered Member ID Huertas Member ID Guarantor Name 07/03/2020 1 [employer] [id number] Sonido Rawls Leann [id number] Shanon Castillo Leann 07/09/2021 1 [employer] [id number] Sonido A Leann [id number] Shanon D Leann 09/04/2022 1 [employer] [id number] Sonido A Leann [id number] Shanon D Leann 09/08/2023 1 [place] [id number] Sonido A Leann [id number] Shanon D Leann Notes Date Note Type Note Provider Name and Address Organization Details Recorded Time 07/03/2020 text/html Annual GYNReport ed bypatient.History: no gynecologic complaints Menstrual cycle:postmenopaus e Urinary symptoms:No hematuria; No incontinence Vulva:No genital lesion Vagina:Normal vaginal discharge Breast:No breast pain; No breast lump; No nipple discharge Sexual complaints:No sexual complaints; No pain during intercourse; Normal libido Menopausal Symptoms:No menopausal symptoms; Normal vaginal lubrication Psychological symptoms:No depression; No anxiety; No PMDD Preventive measures:Encourage self breast examination; Encourage regular exercise; Encourage no tobacco use; Encourage regular mammograms starting age 40; Followed with Q3 year pap smear and high risk HPV typing; Needs to schedule mammogram; Up to date on colonoscopy screening Lorena Baca, BRIAN- [address], [place], [address], [facility] 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.Menopaus al Symptoms:no menopausal symptoms; normal vaginal lubrication Vaginal Bleeding:history of menopause having occurred; no history of post menopausal bleeding Urinary Symptoms:no hematuria; no incontinence; no nocturia; no urinary frequency Vulva:no genital lesion; no vulvar atrophy Vagina:normal vaginal discharge; no vaginal atrophy Breast:no breast lump; no nipple discharge; no breast pain Sexual Complaints:no sexual complaints Psychological Symptoms:no depression; no anxiety Preventive Measures:encourage regular mammograms starting age 40; encourage self breast examination; encourage regular exercise; encourage no tobacco use; needs to schedule mammogram; history of recent colonoscopy; needs to schedule bone density Lorena Baca MAHESH [address], [place], [address], [facility] 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.Menopaus al Symptoms:no menopausal symptoms; normal vaginal lubrication Vaginal Bleeding:history of menopause having occurred; no history of post menopausal bleeding Urinary Symptoms:no hematuria; no incontinence; no nocturia; no urinary frequency Vulva:no genital lesion; no vulvar atrophy Vagina:normal vaginal discharge; no vaginal atrophy Breast:no breast lump; no nipple discharge; no breast pain Sexual Complaints:no sexual complaints Psychological Symptoms:no depression; no anxiety Preventive Measures:encourage regular mammograms starting age 40; encourage self breast examination; encourage regular exercise; encourage no tobacco use; needs to schedule mammogram; history of recent colonoscopy JAQUELINE Garcia [address], [place], [address], [facility] 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.Menopaus al Symptoms:no menopausal symptoms; normal vaginal lubrication Vaginal Bleeding:history of menopause having occurred; no history of post menopausal bleeding Urinary Symptoms:no hematuria; no incontinence; no nocturia; no urinary frequency Vulva:no genital lesion; no vulvar atrophy Vagina:normal vaginal discharge; no vaginal atrophy Breast:no breast lump; no nipple discharge; no breast pain Sexual Complaints:no sexual complaints Psychological Symptoms:no depression; no anxiety Preventive Measures:encourage regular mammograms starting age 40; encourage self breast examination; encourage regular exercise; encourage no tobacco use; needs to schedule mammogram; history of recent colonoscopy; needs to schedule bone density Lorena Baca BRIAN- [address], [place], [address], [facility] 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 07/08/20 21 1 CLOSED Fetus Data First Name Last Name Admitted to NICU Weight (g) Sex Living Outcome Pediatric Complications Fetus ID Race Codes Race Delivery Type Full Term [id number] Vaginal Delivery Braxton Calculation Initial Braxton Date Initial Exam Date Initial Exam Provider Initial Ultrasound Date Last Menstrual Period Date Ultra Sound Weeks Gestation 0 Eighteen To Twenty Week Braxton Update Ultra Sound Date Fundal Height At Umbil Quickening Date Ultra Sound Latest Weeks Gestation Final Braxton Confirmed By Final Braxton Confirmed Date Final Braxton Date Ultra Sound Latest Days Gestation 0 0 Menstrual History Last Menstrual Date Menses Monthly On Bcp Conception Prior Menses Frequency Hcg Plus Date Menarche Onset Age Delivery Information Delivery Date Delivery Type Labor Anesthesia Weeks Gestation Incision Type Labor Labor Length Hrs Delivered By Post Complications Tubal Sterilization Discharge Date Comments 5 Discharge Information Feeding Method Contraceptive Method Maternal HG B and HCT Levels Ob Episode Information Episode Created Date Number of Fetuses Patient Bloodtype Patient rh Status Prepregnancy Weight lbs Domestic Partner Domestic Partner Phone Father Name Supply Chain Business Analyst Status 07/08/20 21 1 CLOSED Fetus Data First Name Last Name Admitted to NICU Weight (g) Sex Living Outcome Pediatric Complications Fetus ID Race Codes Race Delivery Type Full Term [id number] Vaginal Delivery Braxton Calculation Initial Braxton Date Initial Exam Date Initial Exam Provider Initial Ultrasound Date Last Menstrual Period Date Ultra Sound Weeks Gestation 0 Eighteen To Twenty Week Braxton Update Ultra Sound Date Fundal Height At Umbil Quickening Date Ultra Sound Latest Weeks Gestation Final Braxton Confirmed By Final Braxton Confirmed Date Final Braxton Date Ultra Sound Latest Days Gestation 0 0 Menstrual History Last Menstrual Date Menses Monthly On Bcp Conception Prior Menses Frequency Hcg Plus Date Menarche Onset Age Delivery Information Delivery Date Delivery Type Labor Anesthesia Weeks Gestation Incision Type Labor Labor Length Hrs Delivered By Post Complications Tubal Sterilization Discharge Date Comments 0 Discharge Information Feeding Method Contraceptive Method Maternal HG B and HCT Levels Ob Episode Information Episode Created Date Number of Fetuses Patient Bloodtype Patient rh Status Prepregnancy Weight lbs Domestic Partner Domestic Partner Phone Father Name Supply Chain Business Analyst Status 07/08/20 21 1 CLOSED Fetus Data First Name Last Name Admitted to NICU Weight (g) Sex Living Outcome Pediatric Complications Fetus ID Race Codes Race Delivery Type [id number] Vaginal Delivery Braxton Calculation Initial Braxton Date Initial Exam Date Initial Exam Provider Initial Ultrasound Date Last Menstrual Period Date Ultra Sound Weeks Gestation 0 Eighteen To Twenty Week Braxton Update Ultra Sound Date Fundal Height At Umbil Quickening Date Ultra Sound Latest Weeks Gestation Final Braxton Confirmed By Final Braxton Confirmed Date Final Braxton Date Ultra Sound Latest Days Gestation 0 0 Menstrual History Last Menstrual Date Menses Monthly On Bcp Conception Prior Menses Frequency Hcg Plus Date Menarche Onset Age Delivery Information Delivery Date Delivery Type Labor Anesthesia Weeks Gestation Incision Type Labor Labor Length Hrs Delivered By Post Complications Tubal Sterilization Discharge Date Comments 3 Discharge Information Feeding Method Contraceptive Method Maternal HG B and HCT Levels
== END 2025-03-03 07:24 | disposition home or self-care (01) ==
LOC: ANHIMG 07:24
PROVIDERS: PCP Family Medicine; Visit Provider Family Medicine
DX: Z12.31 Encounter for screening mammogram for malignant neoplasm of breast (principal); N64.89 Other specified disorders of breast
CPT/HCPCS: 77063; 77067

== ENCOUNTER 2025-03-29 12:26 | Outpatient (CLI) | payer MEDICARE, SELFPAY ==
--- NOTE | ~2025-03-29 | MM_ITS ---
EXAMINATION: MM diagnostic joyce LT w liv HISTORY: Left breast asymmetry TECHNIQUE: Additional 3-D tomosynthesis images of the left breast were performed and synthetic 2-D im ages were generated. CAD analysis was submitted and interpreted. COMPARISON: 03/03/2025, 02/13/2024 BREAST PARENCHYMAL COMPOSITION:Not Dense. There are scattered areas of fibroglandular density. FINDINGS: Left breast asymmetry effaces with spot compression. No persistent mass lesion or distortio n seen. No suspicious mammographic calcification. IMPRESSION: No mammographic evidence for malignancy. BI-RADS Category 1: Negative Reviewed, dictated and finalized at location .
--- OUTSIDE RECORDS SUMMARY | 2025-03-29 12:29 | XMS_ITS | Data Portability ---
Author Organization 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 Name Role Phone KOURTNEY MORATAYA Primary Care Provider [phone] Assessment Encounter Date Assessment Date Assessment LastModified [...] serum or plasma 2019 020 [facility] ([facility]), [address] , [address], [place], [address], 07/04/2020 12:23:03 CBC 2019 020 [facility] ([facility]), [address] [facility] [address] , [address], [place], [address], 07/04/2020 12:23:02 lipid panel, serum 2019 020 [facility] ([facility]), [address] [facility] [address], [place], [address], 07/04/2020 12:23:02 TSH, serum or plasma 2019 020 [facility] ([facility]), [address] [facility] [address] , [address], [place], [address], 07/04/2020 12:23:04 vitamin D, 25-hydrox y, total, serum 2019 020 [facility] ([facility]), [address] , [address], [place], [address], 07/04/2020 12:23:04 Referral None recorded. Procedures None recorded. Surgeries None recorded. Imaging MAMMO, screening , bilateral 2022 023 [facility], [address], [place], [address], 09/22/2023 11:26:36 DEXA, axial skeleton + vertebral fracture assessmen t [email or web address] [facility], [address], [place], [address], 02/12/2024 16:30:19 MAMMO, screening , bilateral 2021 022 [facility], [address], [place], [address], 09/15/2022 15:32:35 DEXA, axial skeleton + vertebral fracture assessmen t 2020 021 [facility], [address], [place], [address], 10/09/2021 15:17:10 Medication Orders None recorded. Patient TargetsNo targets recorded. Patient Instructions Encounter Date Encounter Id Patient Instructions Last Modified By Organization Details Last Modified Time 07/03/2020 [id number] [email or web address] Not available 12:34:03 Reason for Referral None Reported. Results Created Date Observation Date Name Description Value Unit Range Abnormal Flag Note LastModifiedBy Organization Detail LastModifiedTime 07/03/2007/04/2020 lipid panel , serum cholesterol 184 mg/dL <200 Not Available [facility] ([facility]) [address] [place] [address] Dr Avilez, [place], [address], 07/04/2020 12:23:02 07/03/2007/04/2020 lipid panel , serum triglyceride s 51 mg/dL <150 Not Available [facility] ([facility]) [address] [place] [address] Dr Avilez, [place], [address], 07/04/2020 12:23:02 07/03/2007/04/2020 lipid panel , serum HDL cholesterol 97 mg/dL >39 Not Available [facility] ([facility]) [address] [place] [address] Dr Avilez, [place], [address], 07/04/2020 12:23:02 07/03/2007/04/2020 lipid panel , serum cholesterol / HDL ratio 1.90 ratio 0.00-4 .44 Not Available [facility] ([facility]) [address] [place] [address] Dr Avilez, [place], [address], 07/04/2020 12:23:02 07/03/20 20 07/04/2020 lipid panel , serum non-HDL cholesterol 87 mg/dL <130 Not Available [facility] ([facility]) [address], [place], [address], 07/04/2020 12:23:02 07/03/2007/04/2020 lipid panel , serum [...] 2003 ATPII I guide lines Not Available [facility] ([facility]) [address], [place], [address], 07/04/2020 12:23:02 07/03/20 20 07/04/2020 lipid panel , serum LDL/HDL ratio 0.8 [...] e order the ASCVD Advan johnny Lipid Profi le (LIPC VD). Not Available [facility] ([facility]) [address] [place] [address] Dr [address]ilez, [place], [address], 07/04/2020 12:23:02 07/03/20 20 07/04/2020 CBC WBC 4.2 K/uL 3.8-11 .5 Not Available [facility] ([facility]) [address] [place] [address] Dr [address]ilez, [place], [address], 07/04/2020 12:23:02 07/03/20 20 07/04/2020 CBC red blood cell count (RBC) 3.87 M/mm3 3.60-5 .30 Not Available [facility] Antoniomere [facility] ([facility]) [address] [place] [address] Dr [address]ilez, [place], [address], 07/04/2020 12:23:02 07/03/20 20 07/04/2020 CBC hemoglobin (HGB) 11.9 gm/dL 11.5-1 5.5 Not Available [facility] Antoniome[facility] ([facility]) [address] [place] [address] Dr Avilez, [place], [address], 07/04/2020 12:23:02 07/03/20 20 07/04/2020 CBC hematocrit (HCT) 34.0 % 35.2-4 6.4 low Not Available [facility] Shannon [facility] ([facility]) [address] [place] [address] Dr Avilez, [place], [address], 07/04/2020 12:23:02 07/03/2007/04/2020 CBC MCV 87.9 fL 79.0-9 9.0 Not Available [facility] ([facility]) [address] [place] [address] Dr Avilez, [place], [address], 07/04/2020 12:23:02 07/03/2007/04/2020 CBC MCH 30.7 pg 26.9-3 5.0 Not Available [facility] ([facility]) [address] [place] [address] Dr Avilez, [place], [address], 07/04/2020 12:23:02 07/03/2007/04/2020 CBC MCHC 35.0 g/dL 30.4-3 4.8 high Not Available [facility] ([facility]) [address] [place] [address] Dr Avilez, [place], [address], 07/04/2020 12:23:02 07/03/2007/04/2020 CBC RDW 40.1 fL 38.6-5 3.8 Not Available [facility] ([facility]) [address] [place] [address] Dr Avilez, [place], [address], 07/04/2020 12:23:02 07/03/2007/04/2020 CBC platelet count 209 K/cum m 137-39 7 Not Available [facility] ([facility]) [address] [place] [address] Dr Avilez, [place], [address], 07/04/2020 12:23:02 07/03/2007/04/2020 CMP, serum or plasm a sodium 138 mEq/L 135-14 5 Not Available [facility] ([facility]) [address] [place] [address] Dr Avilez, [place], [address], 07/04/2020 12:23:03 07/03/2017 0707/04/2020 CMP, serum or plasm a potassium 4.1 mEq/L 3.5-5. 3 Not Available [facility] ([facility]) [address] [place] [address] Dr Avilez, [place], [address], 07/04/2020 12:23:03 07/03/20 20 07/04/2020 CMP, serum or plasm a chloride 99 mEq/L 97-108 Not Available [facility] ([facility]) [address] [place] [address] Dr Avilez, [place], [address], 07/04/2020 12:23:03 07/03/2007/04/2020 CMP, serum or plasm a CO2 31 mEq/L 22-32 Not Available [facility] ([facility]) [address] [place] [address] Dr Avilez, [place], [address], 07/04/2020 12:23:03 07/03/2007/04/2020 CMP, serum or plasm a glucose 88 mg/dL 65-99 Not Available [facility] ([facility]) [address] [place] [address] Dr Avilez, [place], [address], 07/04/2020 12:23:03 07/03/2007/04/2020 CMP, serum or plasm a BUN 11 mg/dL 8-23 Not Available [facility] ([facility]) [address] [place] [address] Dr Avilez, [place], [address], 07/04/2020 12:23:03 07/03/2007/04/2020 CMP, serum or plasm a creatinine 0.81 mg/dL 0.50-1 .00 Not Available [facility] ([facility]) [address] [place] [address] Dr Avilez, [place], [address], 07/04/2020 12:23:03 07/03/20 20 07/04/2020 CMP, serum or plasm a calcium 9.8 mg/dL 8.6-10 .4 Not Available [facility] ([facility]) [address] [place] [address] Dr Avilez, [place], [address], 07/04/2020 12:23:03 07/03/2007/04/2020 CMP, serum or plasm a protein 6.6 g/dL 6.0-8. 3 Not Available [facility] ([facility]) [address] [place] [address] Dr Avilez, [place], [address], 07/04/2020 12:23:03 07/03/2007/04/2020 CMP, serum or plasm a albumin 4.5 g/dL 3.5-5. 3 Not Available [facility] ([facility]) [address] [place] [address] Dr Avilez, [place], [address], 07/04/2020 12:23:03 07/03/2007/04/2020 CMP, serum or plasm a alkaline phosphatase 85 IU/L 35-121 Not Available [facility] ([facility]) [address] [place] [address] Dr Avilez, [place], [address], 07/04/2020 12:23:03 07/03/2007/04/2020 CMP, serum or plasm a ALT (SGPT) 24 IU/L <5-47 Not Available [facility] ([facility]) [address] [place] [address] Dr Avilez, [place], [address], 07/04/2020 12:23:03 07/03/2007/04/2020 CMP, serum or plasm a AST (SGOT) 26 IU/L <5-40 Not Available [facility] ([facility]) [address] [place] [address] Dr Avilez, [place], [address], 07/04/2020 12:23:03 07/03/2007/04/2020 CMP, serum or plasm a bilirubin, total 0.3 mg/dL <0.2-1 .2 Not Available [facility] ([facility]) [address] [facility] [address], [place], [address], 07/04/2020 12:23:03 07/03/20 20 07/04/2020 CMP, serum or plasm a A/G ratio 2.1 mg/dL 1.1-2. 5 Not Available [facility] [address], [place], [address], 07/04/2020 12:23:03 07/03/20 20 07/04/2020 GFR, estim ated (eGFR ), serum estimated GFR (black) 90 mL/mi n/1.7 3m2 >59 Not Available [facility] ([facility]) [facility] [address], [place], [address], 07/04/2020 12:23:03 07/03/20 20 07/04/2020 GFR, estim ated (eGFR ), serum estimated [...] re *In the absen ce of karthik rutledgeag e, neith er GFR categ ory G1 [...] e mass or diet. Not Available [facility] ([facility]) [address] [place] [address] Dr Avilez, [place], [address], 07/04/2020 12:23:03 07/03/20 20 07/04/2020 TSH, serum or plasm a TSH reflex to FT4 2.57 mU/L 0.27-4 .20 Not Available [facility] ([facility]) [address] [place] [address] Dr Avilez, [place], [address], 07/04/2020 12:23:04 07/03/2007/04/2020 vitam in D, 25-hy droxy , total [...] corre latio n requi red. Not Available [facility] ([facility]) [address] [place] [address] Dr Avilez, [place], [address], 07/04/2020 12:23:04 10/16/19 22 10/16/2021 CBC W/DIF F WBC 4.7 10'3/ uL 3.6-10 .[address] [facility] (Lab) [address], [place], [address], 10/17/2021 02:25:49 10/16/19 22 10/16/2021 CBC W/DIF F RBC 4.60 10'6/ uL (based on docume nted legal sex) 4.10-5 .[address] [facility] (Lab) [address] , [place], [address], 10/17/2021 02:25:49 10/16/19 22 10/16/2021 CBC W/DIF F HGB 13.3 g/dL (based on docume nted legal sex) 11.9-1 5.[address] [facility] (Lab) [address], [place], [address], 10/17/2021 02:25:49 10/16/19 22 10/16/2021 CBC W/DIF F HCT 41.6 % (based on docume nted legal sex) 37.4-4 8.[address] [facility] (Lab) [address], [place], [address], 10/17/2021 02:25:49 10/16/19 22 10/16/2021 CBC W/DIF F MCV 91.0 fL 82.0-9 9.[address] [facility] (Lab) [address], [place], [address], 10/17/2021 02:25:49 10/16/19 22 10/16/2021 CBC W/DIF F MCH 29.0 pg 27.0-3 3.[address] [facility] (Lab) [address], [place], [address], 10/17/2021 02:25:49 10/16/19 22 10/16/2021 CBC W/DIF F MCHC 32.0 g/dL 32.0-3 6.0 Not [address] [facility] (Lab) [address], [place], [address], 10/17/2021 02:25:49 10/16/19 22 10/16/2021 CBC W/DIF F RDW 13.0 % 11.0-1 5.0 Not [address] [facility] (Lab) [address] [place], [address], 10/17/2021 02:25:49 10/16/19 22 10/16/2021 CBC W/DIF F plt 191 10'3/ uL 150-45 0 Not Available [facility] (Lab) [address], [place], [address], 10/17/2021 02:25:49 10/16/19 22 10/16/2021 CBC W/DIF F MPV 10.1 fL 9.8-12 .7 Not Available [facility] (Lab) [address], [place], [address], 10/17/2021 02:25:49 10/16/19 22 10/16/2021 CBC W/DIF F NRBC's 0.00 % 0 Not Available [facility] (Lab) [address], [place], [address], 10/17/2021 02:25:49 10/16/19 22 10/16/2021 CBC W/DIF F absolute NRBCs 0.0 10'3/ uL 0 Not Available [facility] (Lab) [address], [place], [address], 10/17/2021 02:25:49 10/16/19 22 10/16/2021 CBC W/DIF F neutrophils 58.0 % 37.0-7 2.0 Not [address] [facility] (Lab) [address], [place], [address], 10/17/2021 02:25:49 10/16/19 22 10/16/2021 CBC W/DIF F lymphocytes 30.0 % 16.0-4 8.0 Not [address] [facility] (Lab) [address], [place], [address], 10/17/2021 02:25:49 10/16/19 22 10/16/2021 CBC W/DIF F monocytes 6.0 % 4.0-14 .0 Not Available [facility] (Lab) [address], [place], [address], 10/17/2021 02:25:49 10/16/19 22 10/16/2021 CBC W/DIF F eosinophils 5.0 % 0.0-9. 0 [address] [facility] (Lab) [address] [facility], [place], [address], 10/17/2021 02:25:49 10/16/19 22 10/16/2021 CBC W/DIF F basophils 1.0 % 0.0-2. [address] [facility] (Lab) [address] [facility], [place], [address], 10/17/2021 02:25:49 10/16/19 22 10/16/2021 CBC W/DIF F immature granulocytes 0.0 % no define d refere nce range Not Available [facility] (Lab) [address] [facility], [place], [address], 10/17/2021 02:25:49 10/16/19 22 10/16/2021 CBC W/DIF F absolute neutrophils 2.7 10'3/ uL 1.1-6. 0 Not Available [facility] (Lab) [address] [facility], [place], [address], 10/17/2021 02:25:49 10/16/19 22 10/16/2021 CBC W/DIF F absolute lymphocytes 1.4 10'3/ uL 0.7-3. 4 Not Available [facility] (Lab) [address] [facility], [place], [address], 10/17/2021 02:25:49 10/16/19 22 10/16/2021 CBC W/DIF F absolute monocytes 0.3 10'3/ uL 0.3-1. 0 Not [address] [facility] (Lab) [address] [place], [address], 10/17/2021 02:25:49 10/16/19 22 10/16/2021 CBC W/DIF F absolute eosinophils 0.2 10'3/ uL 0.0-0. 6 Not [address] [facility] (Lab) [address] [place], [address], 10/17/2021 02:25:49 10/16/19 22 10/16/2021 CBC W/DIF F absolute basophils 0.1 10'3/ uL 0.0-0. 1 Not [address] [facility] (Lab) [address] [facility], [place], [address], 10/17/2021 02:25:49 10/16/19 22 10/16/2021 CBC W/DIF [...] resul ts are expec ashley. Not Available [facility] (Lab) [address] [facility], [place], [address], 10/17/2021 02:25:49 10/16/19 22 10/16/2021 PHOSP HORUS phosphorus 3.4 mg/dL 2.5-5. 0 Not Available [facility] (Lab) [address] [facility], [place], [address], 10/17/2021 02:25:50 10/16/19 22 10/16/2021 CMP(C OMPRE HENSI VE METAB OLIC PANEL ) sodium 141 mmol/ L 133-14 6 Not Available [facility] (Lab) [address] [place], [address], 10/17/2021 02:25:50 10/16/19 22 10/16/2021 CMP(C OMPRE HENSI VE METAB OLIC PANEL ) potassium 4.2 mmol/ L 3.5-5. [address] [facility] (Lab) [address] [place], [address], 10/17/2021 02:25:50 10/16/19 22 10/16/2021 CMP(C OMPRE HENSI VE METAB OLIC PANEL ) chloride 106 mmol/ L 98-107 Not Available [facility] (Lab) [address] [place], [address], 10/17/2021 02:25:50 10/16/19 22 10/16/2021 CMP(C OMPRE HENSI VE METAB OLIC PANEL ) carbon dioxide 27 mmol/ L 21-31 Not Available [facility] (Lab) [address], [place], [address], 10/17/2021 02:25:50 10/16/19 22 10/16/2021 CMP(C OMPRE HENSI VE METAB OLIC PANEL ) anion gap 8 mmol/ L 4-13 Not Available [facility] (Lab) [address], [place], [address], 10/17/2021 02:25:50 10/16/19 22 10/16/2021 CMP(C OMPRE HENSI VE METAB OLIC PANEL ) blood urea nitrogen 16 mg/dL 7-25 Not Available [facility] (Lab) [address], [place], [address], 10/17/2021 02:25:50 10/16/19 22 10/16/2021 CMP(C OMPRE HENSI VE METAB OLIC PANEL ) creatinine 0.86 mg/dL 0.60-1 .30 Not Available [facility] (Lab) [address] [facility], [place], [address], 10/17/2021 02:25:50 10/16/19 22 10/16/2021 CMP(C OMPRE HENSI VE METAB OLIC PANEL ) egfrcr (CKD-epi 2020) 76 mL/mi n/1.7 3_m2 >=60 Not Available [facility] (Lab) [address], [place], [address], 10/17/2021 02:25:50 10/16/19 22 10/16/2021 CMP(C OMPRE HENSI VE METAB OLIC PANEL ) calcium 9.4 mg/dL 8.3-10 .[address] Not [address] [facility] (Lab) [address] [facility], [place], [address], 10/17/2021 02:25:50 10/16/19 22 10/16/2021 CMP(C OMPRE HENSI VE METAB OLIC PANEL ) glucose 83 mg/dL 70-[address] Not [address] [facility] (Lab) [address] [facility], [place], [address], 10/17/2021 02:25:50 10/16/19 22 10/16/2021 CMP(C OMPRE HENSI VE METAB OLIC PANEL ) protein, total 6.5 g/dL 6.4-8. 3 Not Available [facility] (Lab) [address] [facility], [place], [address], 10/17/2021 02:25:50 10/16/19 22 10/16/2021 CMP(C OMPRE HENSI VE METAB OLIC PANEL ) albumin 4.4 g/dL 3.5-5. 0 Not Available [facility] (Lab) [address] [facility], [place], [address], 10/17/2021 02:25:50 10/16/19 22 10/16/2021 CMP(C OMPRE HENSI VE METAB OLIC PANEL ) ALT 22 units /L 9-43 Not Available [facility] (Lab) [address] [facility], [place], [address], 10/17/2021 02:25:50 10/16/19 22 10/16/2021 CMP(C OMPRE HENSI VE METAB OLIC PANEL ) alkaline phosphatase 70 units /L 34-104 Not Available [facility] (Lab) [address] [facility], [place], [address], 10/17/2021 02:25:50 10/16/19 22 10/16/2021 CMP(C OMPRE HENSI VE METAB OLIC PANEL ) AST 22 units /L 13-39 Not Available [facility] (Lab) [address] [facility], [place], [address], 10/17/2021 02:25:50 10/16/19 22 10/16/2021 CMP(C OMPRE HENSI VE METAB OLIC PANEL ) bilirubin, total 0.5 mg/dL 0.2-1. [address] [facility] (Lab) [address] [facility], [place], [address], 10/17/2021 02:25:50 10/16/19 22 10/16/2021 TSH, REFLE X FREE T4 TSH 3.48 uIU/m L 0.30-5 .33 Not Available [facility] (Lab) [address] [facility], [place], [address], 10/17/2021 02:25:50 10/16/19 22 10/16/2021 VITAM IN D, 25-OH (TOTA L D2/D3 ) vitamin D, 25-hydroxy, total 44.1 NG/mL 30-80 NOTE: Defic iency : <20 ng/mL Insuf ficie ncy: 20-29 ng/mL Optim um Level : 30-80 ng/mL Possi ble Toxic ity: >80 ng/mL Most patie nts with toxic ity have level s >150 ng/mL . 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 Atrop hy prese nt. Elect mayur silva jaguar d by Richard mar, Patience moore, CT on 2021 at 2:13 PM ----- [...] as clini linh helms nted. 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 Atrop hy prese nt. Elect mayur silva jaguar d by Becky Shaa , CT on 09/11 at 9:26 AM [...] as clini linh helms nted. Not Available [facility] (Lab) [address], [place], [address], 09/11/2023 10:30:41 07/19/20 20 07/19/2020 MAMMO , scree jodi, bilat eral No observ ation record ed. [facility] [address] [facility] [address], [place], [address], 07/23/2020 19:42:59 10/01/19 MAMMO , scree jodi, bilat eral No observ ation record ed. [facility] Not Available 2021 10:11:14 10/09/19 22 09/12/2021 DEXA, axial skele ton + verte bral fract ure asses sment No observ ation record ed. [facility] [address] [facility] [address], [place], [address], 10/11/2021 19:45:54 09/15/20 22 09/15/2022 MAMMO , scree jodi, bilat eral No observ ation record ed. [address] [facility] [address], [place], [address], 09/17/2022 09:19:59 10/10/19 23 10/10/2022 MAMMO , diagn ostic , digit al, unila teral No observ ation record ed. [address] [facility] [address] [facility] [address], [place], [address], 10/13/2022 10:52:28 Result Notes None recorded. Problems Name Problem SNOMED Code Status Onset Date Resolution Date Notes Provider Name and Address Organization Details Recorded Time Speciali zed medical examinat ion Completed 201007/08/2021 Gynecolog ical Examinati on;Record ed Elsewhere : No Locati on: [facility] So urce: EHR Chron ic: N Practic e ID: [id number] Bill able Time: 08:45:00 AM [facility] 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 16:06:19 Adult health examinat ion Completed 201007/08/2021 Routine Medical Exam;Tico rded Elsewhere : No Locati on: [facility] So urce: EHR Chron ic: N Practic e ID: 0001 Bill able Time: 08:45:00 AM [facility] 16:06:05 Finding of abdomen [id number] Completed 201607/08/2021 Left lower quadrant abdominal swelling, mass and lump;Tico rded Elsewhere : No Locati on: [facility] So urce: EHR Chron ic: N Practic e ID: 0001 Bill able Time: 09:30:00 AM [facility] 16:06:[address] Concept Completed 201607/08/2021 Encntr for general adult medical exam w/o abnormal findings; Recorded Elsewhere : No Locati on: [facility] So urce: EHR Chron ic: N Practic e ID: 0001 Bill able Time: 09:30:00 AM [facility] 16:06:17 Microsco pic hematuri a [id number] Completed 201207/08/2021 MICROSCOP IC HEMATURIA ;Recorded Elsewhere : No Locati on: [facility] So urce: EHR Chron ic: N Practic e ID: 0001 Bill able Time: 10:00:00 AM [facility] 16:06:13 Screenin g for malignan t neoplasm of cervix Completed 201207/08/2021 Screening for malignant neoplasms of the cervix;Re corded Elsewhere : No Locati on: [facility] So urce: EHR Chron ic: N Practic e ID: 0001 Bill able Time: 10:00:00 AM [facility] 16:06:14 Screenin g for malignan t neoplasm of rectum Completed 201507/08/2021 Encounter for screening for malignant neoplasm of rectum;Re corded Elsewhere : No Locati on: [facility] So urce: EHR Chron ic: N Practic e ID: 0001 Bill able Time: 10:00:00 AM [facility] 16:06:16 Carbuncl e of skin and/or subcutan eous tissue [id number] Completed 201407/08/2021 Carbuncle ;Recorded Elsewhere : No Locati on: [facility] So urce: EHR Chron ic: N Practic e ID: 0001 Bill able Time: 08:00:00 AM [facility] 16:06:07 Carbuncl e of trunk [id number] Completed 201407/08/2021 BOIL BACK BREAST CHEST FLANK GROIN;Pra ctice ID: 0001 [facility] 16:06:08 Problem Notes None recorded. Procedures Surgical History Date Name Laterality Status Provider Name and Address Organization Details Recorded Time 023 Date of Last Mammogram completed [facility] 09/08/2023 09:34:03 022 Date of Last Pap Smear completed [facility] 09/08/2023 09:28:22 021 Most Recent Bone Density completed Janeth Combs [facility] 2022 15:32:44 018 completed [facility] 07/08/2021 16:48:50 013 completed [facility] 07/09/2021 10:51:32 013 Date of Last Colonoscopy completed [facility] 07/09/2021 10:51:32 Other completed [facility] 07/09/2021 10:51:42 Colonoscopy completed Lorena Baca [facility] [address], [place], [address], [facility] 09/04/2022 09:31:53 Hernia repair w/mesh completed [facility] 07/02/2020 17:22:43 Cholecystectomy completed [facility] 07/02/2020 17:22:49 excision of basal cell carcinoma completed [facility] 07/02/2020 17:22:57 Imaging Results None recorded. Procedure Notes None recorded. Medical Equipment None Reported. Allergies Allergen ID Allergen Name Allergen Category Reaction Reaction Severity Criticality Documentation Date Start Date Code Code System Note Provider Name and Address Organization Details Recorded Time 90515 Penicilli n Not available itching moderate Not available 07/09/2021 10725 RxNorm [facility] 10:51:15 2264 Product containin g penicilli n (product) medicatio n Not available Not available Not available 07/02/2020 26345 8001 SNOMED [facility] 1 10:51:53 Medications Name Sig Start Date Stop Date Status Note LastModified by Organization Details LastModified Time Bactroban 2 % topical cream apply by topical route 3 times every day for 10 days a small amount to the affected area 04/14 completed Prescrib ed Elsewher e: No Locat ion: [facility] odify By: barber Phillipsou nter DateTime : 04/05/20 15 08:00:00 AM Not Available Not Available Not Available FiberCon 625 mg tablet active Prescrib ed Elsewher e: Yes Loca tion: [facility] odify By: cmedical Encount er DateTime : 03/27/20 15 08:45:00 AM Not Available Not Available Not Available Cipro 500 mg tablet take 1 tablet (500MG) by oral route every 12 hours 04/17 completed Prescrib ed Elsewher e: No Locat ion: [facility] odify By: barber Phillipsou nter DateTime : 04/05/20 15 08:00:00 AM Not Available Not Available Not Available Vitamins and Minerals tablet active Prescrib ed Elsewher e: Yes [facility] By: addi locke DateTime : 09/09/20 11 08:45:00 AM Not Available Not Available Not Available iron ER 325 mg (65 mg iron) capsule,e xtended release 07/09 completed Prescrib ed Elsewher e: Yes Loca tion: [facility] candido [facility] odify By: addi locke DateTime : 09/09/20 11 08:45:00 AM Not Available Not Available Not Available Calcio Deanne 500 mg tablet 07/09 completed Prescrib ed Elsewher e: Yes Loca tion: [facility] odify By: addi locke DateTime : 09/09/20 [...] Updated DateTime 07/03/2020 162.56 cm 21.1 kg/m2 61850.86 g 138 mm[Hg] 70 mm[Hg] Frieda Banks [facility] 0 10:54:36 Date Recorded Systolic blood pressure Diastolic blood pressure Provider Name and Address Organization Details Last Updated DateTime 07/09/2021 136 mm[Hg] 80 mm[Hg] Lorena Baca, [facility]- [address], [place], [address], [facility] 07/09/2021 10:53:43 Date Recorded Body height Body mass index (BMI) Body weight Body weight Provider Name and Address Organization Details Last Updated DateTime 07/09/2021 161.29 cm 24.9 kg/m2 65620.71 g 17224.86 g Amara Nolasco [facility] 07/12/2021 16:40:39 Date Recorded Body height Body mass index (BMI) Body weight Systolic blood pressure Diastolic blood pressure Provider Name and Address Organization Details Last Updated DateTime 09/04/2022 161.29 cm 21.6 kg/m2 64806.45 g 130 mm[Hg] 80 mm[Hg] Janeth Floodlexus [facility] 2 09:25:24 Date Recorded Body height Body mass index (BMI) Body weight Systolic blood pressure Diastolic blood pressure Provider Name and Address Organization Details Last Updated DateTime 09/08/2023 161.29 cm 22.1 kg/m2 81937.23 g 130 mm[Hg] 77 mm[Hg] Kaylah Lawrence [facility] 3 09:33:19 Social History Question Answer Notes LastModified by Organizat ion Details LastModified Time Tobacco Smoking Status Never Smoker [facility] 07/09/2021 10:51:39 Do You Have An [...] Or The Highest Degree You Have Received? [id number] Information not available 07/09/2021 Are There Any [...] Functional Status Question Answer Note LastModified by Organizat ion Details LastModified Time Do you use [...] anxious, or unable to sleep at night)? [id number] Information not available 07/09/2021 Family History Relationship Description Onset Age of this Age Resolved Age Notes LastModified by Organization Details LastModified Time Mother Suspected ovarian cancer [email or web address] Not available 09/08 09:26:41 Brother Acute stroke [id number] Not av ailable 09/08/2023 09:26:41 Brother Asthma [...] SNOMED-CT Code Diagnosis ICD10 Code Diagnosis Note [id number] Lorena Baca [facility] [address],[facility] [place] [address] 07/03/2020 10:38:09 07/03/2020 12:41:39 Gynecologic examination 83016740 Z01.419 Take Calcium with Vitamin D 12-1500mg daily. Do monthly self breast exams. It is advised to get annual flu shot in the fall and she could obtain at [facility] or [facility] care clinic. If you haven't received the [...] concerns this year. Adult heal th examination [id number] Z00.00 [id number] [facility] [address] [address] 07/09/2021 09:58:17 07/09/2021 11:19:32 Gynecologic examination 82975905 Z01.419 Take Calcium with Vitamin D 12-1500mg daily. Do monthly self breast exams. It is advised to get annual flu shot in the fall and she could obtain at [facility] or [facility] clinic. If you haven't received the Tdap [...] or concerns this year. Postmenopa usal osteopenia [id number] M85.80 [id number] Lorena Baca , [facility] [address] [address] 09/04/2022 09:07:57 09/04/2022 10:35:24 Gynecologic examination 86179027 Z01.419 Take Calcium with Vitamin D 12-1500mg daily. Do monthly self breast exams. It is advised to get annual flu shot in the fall and she could obtain at [facility] or [facility] clinic. If you haven't received the Tdap [...] unless issues-pel katherine check Screening mammography 24 418947 Z12.31 [id number] Lorena Baca , [facility] [address] [address] 09/08/2023 09:25:11 09/08/2023 09:54:09 Gynecologic examination 13004544 Z01.419 Z11.51 Take Calcium with Vitamin D 12-1500mg daily. Do monthly self breast exams. It is advised to get annual flu shot in the fall and she could obtain at [facility] or [facility] care clinic. If you haven't received the [...] unless issues-pel katherine check Screening mammography 24 894147 Z12.31 Screening for osteoporosis 660724212 Z13.820 Health Concerns Section Related Observation LastModified by Organization Detai ls LastModified Time None Recorded Concern Status LastModified by Organization Details LastModified Time None Recorded Advance Directives Directive Y: Payers Insurance Date Sequence Insurance Name Policy Number Policy Huertas Covered Member ID Huertas Member ID Guarantor Name 02/12/2024 1 [employer] [id number] Sonido Rawls Leann [id number] Shanon Jonathan Leann 08/30/2024 1 [place] Shanon D Leann [id number] Shanon D Leann 08/30/2024 2 AARP (MEDICARE SUPPLEMENT) Shanon Castillo Leann [id number] Shanon Castillo Leann Notes Date Note Type Note Provider [...] mammogram; Up to date on colonoscopy screening [facility]- [address], [place], [address], [facility] 07/03/2020 12:35:21 07/09/2021 text/html Annual Strategy Lead Post-MenopausalRep orted bypatient.Menopaus al Symptoms:no menopausal symptoms; [...] recent colonoscopy; needs to schedule bone density [address], [place], [address], [facility] 07/09/2021 11:04:57 09/04/2022 text/html Annual Strategy Lead Post-MenopausalRep orted bypatient.Menopaus al Symptoms:no menopausal symptoms; [...] mammogram; history of recent colonoscopy [address], [place], [address], [facility] 09/04/2022 09:45:25 09/08/2023 text/html Annual Strategy Lead Post-MenopausalRep orted bypatient.Menopaus al Symptoms:no menopausal symptoms; [...] recent colonoscopy; needs to schedule bone density [address], [place], [address], [facility] 09/08/2023 09:53:44 OBGyn Episode Ob Episode Information Episode Created Date Number of Fetuses Patient Bloodtype Patient rh Status Prepregnancy Weight lbs Domestic Partner Domestic Partner Phone Father Name Design Intern Status 07/08/20 21 1 CLOSED Fetus Data First Name Last Name Admitted to NICU Weight (g) Sex Living Outcome Pediatric Complications Fetus ID Race Codes Race Delivery Type Full Term [id number] Vaginal Delivery Braxton Calculation Initial Braxton Date [...] Domestic Partner Domestic Partner Phone Father Name Design Intern Status 07/08/20 21 1 CLOSED Fetus Data First Name Last Name Admitted to NICU Weight (g) Sex Living Outcome Pediatric Complications Fetus ID Race Codes Race Delivery Type Full Term [id number] Vaginal Delivery Braxton Calculation Initial Braxton Date [...] Domestic Partner Domestic Partner Phone Father Name Design Intern Status 07/08/20 21 1 CLOSED Fetus Data First Name Last Name Admitted to NICU Weight (g) Sex Living Outcome Pediatric Complications Fetus ID Race Codes Race Delivery Type [id number] Vaginal Delivery Braxton Calculation Initial Braxton Date [...]
== END 2025-03-29 12:27 | disposition home or self-care (01) ==
LOC: ANHIMG 12:27
PROVIDERS: PCP Family Medicine; Visit Provider Family Medicine
DX: R92.8 Other abnormal and inconclusive findings on diagnostic imaging of breast (principal)
CPT/HCPCS: 77061; 77065; G0279